=== PATIENT | female | born 2000 | race Caucasian/White ===

== ENCOUNTER 2023-03-19 17:01 | Emergency (ER) | payer OTHER, SELFPAY ==
[2023-03-19 17:12] VITALS: BP 138/87; PULSE 72; RESP 16; TEMP 36.2; O2SAT 99
--- NOTE | 2023-03-19 17:20 | ED.BACK ---
HPI - Back Pain/Injury General Chief Complaint: Back Pain/Injury Stated Complaint: Back pain Time Seen by Provider: 03/19/23 17:20 Source: patient, RN notes reviewed and old records reviewed Mode of arrival: ambulatory Limitations: no limitations History of Present Illness HPI Narrative: 22-year-old female who presents to [facility] with complaints of right lower back pain after lifting a box of chicken this morning at work. Patient states she was lifting box and in process from bending to standing she turned and that is when she felt the discomfort. Patient reports right sided lumbar back pain with no radiation of pain down legs, no tingling or numbness. Patient reports that she did take some Ibuprofen while at work which did seem to help some. Patient denies any difficulty passing urine or any abnormal bowel function denies any saddle paraesthesia. MD elicited complaint: back pain Onset (ago): hour(s) (this morning) Pain scale (0-10): 8 Location: lumbar spine Treatments prior to arrival: NSAIDS Work related injury: Yes Related Data Allergies Allergy/AdvReac Type Severity Reaction Status Date / Time No Known Allergies Allergy Unverified 03/14/17 01:06 Review of Systems Review of Systems: CONSTITUTIONAL: Denies fever, chills, or sweats. CARDIOVASCULAR: Denies chest pain, palpitations, or edema. RESPIRATORY: Denies cough or dyspnea. GASTROINTESTINAL: Denies abdominal pain, nausea, vomiting, or diarrhea. GENITOURINARY: Denies dysuria or hematuria. SKIN: Denies rash or itching. MUSCULOSKELETAL: Reports lumbar back pain especially right side,no joint pain or myalgia. NEUROLOGIC: Denies headache, numbness, or weakness. All systems reviewed & are unremarkable except as noted in HPI and below PMFSH Social History Social History (Updated 03/21/23 @ 23:17 by Ema Madera NP) Smoking status: Never smoker Alcohol intake: current Alcohol use details: social Substance use type: does not use Gender identity (if verbalized by the patient): Female Comments At time of signature, agree with nursing past medical, surgical, social and family history. There is no relevant family history pertinent to the presenting complaint Exam Narrative: GENERAL: Well-appearing, well-nourished, and in no acute distress. HEAD: Normocephalic, atraumatic. EYES: PERRLA and EOMI. NECK: Supple. No lymphadenopathy. CHEST: Clear to auscultation. No respiratory distress. SAO2 99% on room air HEART: Regular rate and rhythm. Distal pulses palpable and equal, cap refill <3 seconds ABDOMEN: Soft, nontender, nondistended, normal active bowel sounds, no palpable or pulsatile masses. No CVA tenderness MUSCULOSKELETAL: Normal range of motion and strength in all extremities; 5/5 strength with hip flexion and extension, dorsiflexion and extension, knee flexion and extension, plantar flexion and extension. Normal sensation in dermatomal distributions with sensitivity to light touch and pain. No midline back tenderness to palpation. No paraspinal tenderness. Transfers from lying to sitting to standing.Pain to right side of lumbar region, no tingling or numbness to legs, no saddle paraesthesia SKIN: Warm, dry, no rash. No ecchymosis, erythema, open wounds to back. NEURO: No focal deficits. Alert and oriented x3. Reflexes intact. Normal gait. PSYCH: Normal mood and affect Course Course Emergency Course: Patient is aware of diagnosis, understands and agrees to treatment plan. Anticipatory guidance given. Patient agrees to follow-up as directed and is aware of reasons to seek care at the emergency department. Portions of this record may have been created with voice recognition software Level of Care: Express Care Visit Vital Signs Vital signs: Vital Signs Temperature 36.2 C L 03/19/23 17:12 Pulse Rate 72 03/19/23 17:12 Respiratory Rate 16 03/19/23 17:12 Blood Pressure 138/87 03/19/23 17:12 Pulse Oximetry 99 12
== END 2023-03-19 17:37 | disposition home or self-care (01) ==
PROVIDERS: Emergency Provider Registered Nurse
DX: S39.012A Strain of muscle, fascia and tendon of lower back, initial encounter (principal); X50.0XXA Overexertion from strenuous movement or load, initial encounter; Y99.0 Civilian activity done for income or pay
CPT/HCPCS: 99213; G0463

== ENCOUNTER 2023-07-01 14:31 | Emergency (ER) | payer OTHER, SELFPAY ==
[2023-07-01 14:43] VITALS: BP 127/100; PULSE 84; RESP 20; TEMP 36.9; O2SAT 100
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
[2023-07-01] MEDS: ONDANSETRON HCL ODT 4 MG TABLET 8 MG SUBLINGUAL (15:04)
== END 2023-07-01 15:34 | disposition home or self-care (01) ==
PROVIDERS: Emergency Provider Nurse Practitioner
DX: F41.9 Anxiety disorder, unspecified (principal)
CPT/HCPCS: 99213; A9270; G0463

== ENCOUNTER 2023-11-07 17:27 | Emergency (ER) | payer OTHER, SELFPAY ==
--- NOTE | ~2023-11-07 | CT_ITS ---
EXAMINATION: CT brain wo con DATE: 11/07/2023 19:03 INDICATION: syncope and collapse . TECHNIQUE: Computed tomography (CT) of the head was performed without intravenous contrast. The mA wa s adjusted according to patient size. Iterative reconstruction technique was employed. The dose-lengt h product was 529.67 mGy-cm. COMPARISON: None. FINDINGS: No acute intracranial hemorrhage or extra-axial fluid collection. No hydrocephalus, mass, or herniation. No acute ischemic infarct. Unremarkable dural venous sinus attenuation. No acute osseous abnormality. The aerated spaces are clear. IMPRESSION: No acute intracranial process. Reviewed, dictated and finalized at location K.
--- NOTE | ~2023-11-07 | XR_ITS ---
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 RESULT: Lines, tubes, and devices: None. Lungs and pleura: Clear. Cardiomediastinal silhouette: Normal. Other: No acute osseous or upper abdominal finding. IMPRESSION: No acute cardiopulmonary process. Reviewed, dictated and finalized at location K.
[2023-11-07 17:34] VITALS: BP 153/80; PULSE 114; RESP 20; TEMP 36.7; O2SAT 100
[2023-11-07 19:31] LABS: Basophils Absolute Auto 0.1 K/mm3 (0.0-0.1); Basophils Percent Auto 0.4 % (0.2-1.2); Eosinophils Absolute Auto 0.1 K/mm3 (0-0.3); Eosinophils Percent Auto 0.4 % (0-4.4); Hematocrit 43.4 % (37.0-47.0); Hemoglobin 14.7 g/dL (12.0-15.0); Immature Granulocyte Absolute 0.09 K/mm3 (0.00-0.031); Immature Granulocyte Percent A 0.6 % (0-0.5); Lymphocytes Absolute Auto 1.71 K/mm3 (0.9-3.2); Lymphocytes Percent Auto 10.5 % (18.3-44.2); Mean Corpuscular HGB Conc 33.9 g/dl (32-36); Mean Corpuscular Hemoglobin 32.3 pg (26-34); Mean Corpuscular Volume 95.4 fl (80-100); Mean Platelet Volume 11.5 fl (7.4-10.4); Monocytes Absolute Auto 0.9 K/mm3 (0.1-0.6); Monocytes Percent Auto 5.4 % (2.6-8.5); Neutrophils Absolute Auto 13.5 K/mm3 (1.3-6.7); Neutrophils Percent Auto 82.7 % (45.5-73.1); Platelet Count Result 214 k/mm3 (150-375); Red Blood Count 4.55 M/mm3 (4.2-5.4); Red Cell Distribution Width 11.9 % (11.5-14.5); White Blood Count 16.3 K/mm3 (4.5-10.0)
[2023-11-07 19:40] LABS: INR 0.9; Prothrombin Time 12.8 Seconds (11.1-14.7)
[2023-11-07 19:41] LABS: Ethanol < 10 mg/dL (<10); Partial Thromboplastin Time 24.3 Seconds (22.3-36.8)
[2023-11-07 19:42] LABS: Alanine Aminotransferase 14 U/L (6-35); Albumin Level 5.4 g/dL (3.5-5.1); Alkaline Phosphatase 84 U/L (38-126); Anion Gap 11 mmol/L (4-12); Aspartate Amino Transferase 23 U/L (14-36); Bilirubin,Total 0.5 mg/dL (0.2-1.3); Blood Urea Nitrogen 15 mg/dL (7-17); Calcium 9.6 mg/dL (8.4-10.2); Carbon Dioxide 28 mmol/L (22-30); Chloride 100 mmol/L (98-107); Estimated CRCL calculation 91 ml/min; Estimated Glomerular Filt Rate > 60; Glucose 109 mg/dL (65-110); Potassium 3.8 mmol/L (3.4-5.0); Sodium 139 mmol/L (137-145)
[2023-11-07 19:54] LABS: Troponin I < 0.012 ng/mL (0.000-0.034)
[2023-11-07 20:15] VITALS: O2SAT 98
--- NOTE | 2023-11-07 20:50 | ED.GENADULT ---
HPI - General Adult General Chief complaint: Seizure Stated complaint: seizure? Time Seen by Provider: 11/07/23 20:38 History of Present Illness HPI narrative: Is a 23-year-old female with history of anxiety presenting for a possible seizure. The patient was at work when she started to think about the many things that are overwhelming her right now. She then felt like her left foot locked up and she tripped and fell to the ground. Her boss thought that she was shaking and having a seizure although the patient was conscious. She has no history of seizures. No tongue biting or urinary incontinence. Patient has no complaints at this time. Related Data Allergies Allergy/AdvReac Type Severity Reaction Status Date / Time No Known Allergies Allergy Unverified 07/01/23 14:42 [facility] Social History Social History Smoking status: Never smoker Alcohol intake: current Alcohol use details: social Substance use type: does not use Gender identity (if verbalized by the patient): Female Exam Narrative: APPEARANCE: No apparent distress. Head: atraumatic. EYES: EOMI, NOSE: Atraumatic NECK: Trachea midline RESPIRATORY: No increased rate of breathing CARDIOVASCULAR: RRR, ABDOMINAL: Non-distended MUSCULOSKELETAl: No obvious deformities NEURO: Alert. Cranial nerves 2-12 grossly intact. Sensation light touch, motor function cerebellar function intact for 4 extremities. Gait exam was normal. SKIN:: Abrasion right knee PSYCHIATRIC: Normal affect Course Vital Signs Vital signs: Vital Signs Temperature 98.1 F 11/07/23 17:34 Pulse Rate 114 H 11/07/23 17:34 Respiratory Rate 20 11/07/23 17:34 Blood Pressure 153/80 H 11/07/23 17:34 Pulse Oximetry 100 11/07/23 17:34 Oxygen Delivery Room Air 11/07/23 17:34 Temperature 98.1 F 11/07/23 17:34 Pulse Rate 114 H 11/07/23 17:34 Respiratory Rate 20 11/07/23 17:34 Blood Pressure 153/80 H 11/07/23 17:34 Pulse Oximetry 100 11/07/23 17:34 Oxygen Delivery Room Air 11/07/23 17:34 Medical Decision Making [facility] Narrative Medical decision making narrative: -Course: 23-year-old female presenting after becoming very anxious and tripping at work. No true seizure activity. No concerning findings on history or physical. Her workup here was unremarkable outside a mildly elevated white count with no other signs of infection. Patient will be discharged to follow-up with her primary care physician. -DDX includes but is not limited to: Stress reaction, psychogenic nonepileptic seizure epilepsy -Co-morbidities complicating care: Anxiety -Social determinants of health: Works multiple jobs, positive marijuana -Hx from independent Sources: Family at bedside -Independent interpretation of studies: WBC 16 Other labs reviewed. -Shared decision making / Disposition: Discharge -RX Vital Signs Vital Signs: Vital Signs Temperature 98.1 F 11/07/23 17:34 Pulse Rate 114 H 11/07/23 17:34 Respiratory Rate 20 11/07/23 17:34 Blood Pressure 153/80 H 11/07/23 17:34 Pulse Oximetry 100 11/07/23 17:34 Oxygen Delivery Room Air 11/07/23 17:34 Temperature 98.1 F 11/07/23 17:34 Pulse Rate 114 H 11/07/23 17:34 Respiratory Rate 20 11/07/23 17:34 Blood Pressure 153/80 H 11/07/23 17:34 Pulse Oximetry 100 11/07/23 17:34 Oxygen Delivery Room Air 11/07/23 17:34 Lab Data 11/07/23 19:19 11/07/23 19:19 Labs: Lab Results 11/07/23 11/07/23 Range/Units 19:19 20:30 WBC 16.3 H (4.5-10.0) K/mm3 RBC 4.55 (4.2-5.4) M/mm3 Hgb 14.7 (12.0-15.0) g/dL Hct 43.4 (37.0-47.0) % MCV 95.4 (80-100) fl MCH 32.3 (26-34) pg MCHC 33.9 (32-36) g/dl RDW 11.9 (11.5-14.5) % Plt Count 214 (150-375) k/mm3 MPV 11.5 H (7.4-10.4) fl Immature Gran % (Auto) 0.6 H (0-0.5) % Neut % (Auto) 82.7 H (45.5-73.1) % Lym
[2023-11-07 20:54] LABS: Appearance Urine Clear (Clear); Bilirubin Urine Negative (Negative); Blood Urine Negative (Negative); Color Urine Yellow (Yellow); Glucose Urine UA Negative (Negative); Ketones Urine Negative (Negative); Leukocyte Esterase Ur Negative LEU/UL (Negative); Nitrate Urine Negative (Negative); Protein Urine Negative (Negative); Specific Grav Ur 1.006 (1.001-1.035); Urobilinogen Urine 0.2 mg/dL (<2.0); pH Urine 5.5 (5.0-9.0)
[2023-11-07 20:55] LABS: Amphetamine Screen Urine Negative (Negative); Barbiturate Screen Urine Negative (Negative); Benzodiazepines Screen Urine Negative (Negative); Cannabinoid Screen Urine Positive (Negative); Cocaine Screen Urine Negative (Negative); Methadone Screen Urine Negative (Negative); Opiate Screen Urine Negative (Negative); Phencyclidine Screen Urine Negative (Negative)
[2023-11-07 20:58] LABS: Add Urine Microscopic? NO
[2023-11-07 21:18] VITALS: BP 127/87; PULSE 93; RESP 16; TEMP 36.3; O2SAT 99
== END 2023-11-07 21:20 | disposition home or self-care (01) ==
LOC: ANHED 21:13
PROVIDERS: Emergency Provider Emergency Medicine
DX: F43.9 Reaction to severe stress, unspecified (principal); F41.9 Anxiety disorder, unspecified
CPT/HCPCS: 36415; 70450; 71046; 80053; 80307; 81003; 81025; 84484; 85025; 85610; 85730; 99284

== ENCOUNTER 2023-12-29 10:13 | Emergency (ER) | payer OTHER, SELFPAY ==
[2023-12-29 10:18] VITALS: BP 110/62; PULSE 72; RESP 20; TEMP 37.1; O2SAT 100
--- NOTE | 2023-12-29 10:33 | ED.URI ---
HPI - URI/Sore Throat General Chief Complaint: Upper Respiratory Infection Stated Complaint: throat Time Seen by Provider: 12/29/23 10:34 History of Present Illness HPI Narrative: 23-year-old female presented for complaint of sore throat. Onset today. Endorses felt scratchy this morning and a mild headache last night. Endorses exposure to strep throat. Denies n/v/d/f/c. Related Data Allergies Allergy/AdvReac Type Severity Reaction Status Date / Time No Known Allergies Allergy Unverified 07/01/23 14:42 Review of Systems Review of Systems: CONSTITUTIONAL: Denies body aches, fever, chills, or sweats. EYES: Denies visual changes, redness, or discharge. ENT: Reports sore throat Denies rhinorrhea, congestion, or otalgia. CARDIOVASCULAR: Denies chest pain, palpitations, or edema. RESPIRATORY: Denies dyspnea. GASTROINTESTINAL: Denies abdominal pain, nausea, vomiting, or diarrhea. SKIN: Denies rash MUSCULOSKELETAL: Denies back pain, joint pain, or myalgia. NEUROLOGIC: Denies headache [facility] Social History Social History Smoking status: Never smoker Alcohol intake: current Alcohol use details: social Substance use type: does not use Gender identity (if verbalized by the patient): Female Exam Narrative: GENERAL: ill-appearing, no acute distress. EYES: conjunctivae clear ENT: Mucous membranes moist. TM pearly huertas with normal light reflex bilaterally; no tragal tenderness. Oropharynx mildly erythematous without lesions. Tonsils enlarged 1+ and without exudate. No drooling, no hoarseness, no trismus, uvula midline. No tripod positioning, hot potato voice, or soft palate swelling. NECK: Supple. No lymphadenopathy CHEST: Clear to auscultation, breath sounds equal. No respiratory distress, speaks in full sentences. HEART: Regular rate and rhythm. No murmur heard. SKIN: Warm, dry, no rash. NEURO: Alert and oriented x3. Course Course Emergency Course: Patient is aware of diagnosis, understands and agrees to treatment plan. Anticipatory guidance given. Patient agrees to follow-up as directed and is aware of reasons to seek care at the emergency department. Portions of this record may have been created with voice recognition software Level of Care: Express Care Visit Vital Signs Vital signs: Vital Signs Temperature 98.7 F 12/29/23 10:18 Pulse Rate 72 12/29/23 10:18 Respiratory Rate 20 12/29/23 10:18 Blood Pressure 110/62 12/29/23 10:18 Pulse Oximetry 100 12/29/23 10:18 Oxygen Delivery Room Air 12/29/23 10:18 Temperature 98.7 F 12/29/23 10:18 Pulse Rate 72 12/29/23 10:18 Respiratory Rate 20 12/29/23 10:18 Blood Pressure 110/62 12/29/23 10:18 Pulse Oximetry 100 12/29/23 10:18 Oxygen Delivery Room Air 12/29/23 10:18 MDM - URI/Sore Throat MDM Narrative Medical decision making narrative: Neg strep result reviewed with pt. Advise supportive treatments. Patient is appropriate for outpatient treatment and follow-up. Differential Diagnosis Differential diagnosis: Likely upper respiratory infection, viral infection and pharyngitis Discharge Plan Discharge Clinical Impression: Pharyngitis Patient Disposition: Home, Self-Care Condition: Stable Instructions: Antibiotic Form, Strep Throat (ED) Additional Instructions: Rapid strep swab was negative today You will be notified in a few days if the culture comes back positive for strep, and appropriate antibiotics will be called in at that time. if symptoms are due to a viral illness, it is not treated with antibiotics. Viral symptoms can be present for up to 10-14 days. Recommend Flonase spray and Zyrtec if you develop sinus congestion Cough syrup may cause drowsiness; avoid driving or take it at night time. Tylenol every 8 hours as needed for pain/fever Soft foods, cool liquids, warm tea. Gargle with warm saltwater twice a day.
[2023-12-29 10:42] LABS: EDSTREPNEGPOS1 Negative (Negative)
== END 2023-12-29 10:41 | disposition home or self-care (01) ==
PROVIDERS: Emergency Provider Nurse Practitioner Family
DX: J02.9 Acute pharyngitis, unspecified (principal)
CPT/HCPCS: 87081; 87880; 99213; G0463

== ENCOUNTER 2024-07-08 18:25 | Emergency (ER) | payer BC, SELFPAY ==
--- OUTSIDE RECORDS SUMMARY | 2024-07-08 18:27 | XMS_ITS | Clinical Summary ---
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 Gender Identity Not on file Sexual Orientation Not on file Plan of Treatment Health Maintenance Due Date Last Done Comments Hepatitis C Virus (HCV) Screening 1998 TdaP Immunization 1998 Human Papillomavirus (HPV) Immunization (1 - 3-dose series) 2013 Pap Smear 2019 Influenza Immunization (#1) 12/18/202310/2018, 02/17/2017, 02/10/2016, Additional history exists SARS-COV-2 Immunization ( season) 2023 Respiratory Syncytial Virus (RSV) Immunization (Adult) (1 - 1-dose 75+ series) 2073 Hepatitis B Immunization Completed 999, 1998, 1998 Pneumococcal Immunization Combined Aged Out 03/04/2000, 01/05/2000 No longer eligibl e based on patient's age to complete this topic DTaP/Tdap/Td Immunization Discontinued 2003, 01/05/2000, 1998, Additional history exists Meningococcal Immunization (ACWY) Aged Out No longer eligible based on patient's age to complete this topic Rotavirus Immunization Aged Out No lo nger eligible based on patient's age to complete this topic
[2024-07-08 18:40] VITALS: BP 135/65; PULSE 115; RESP 16; TEMP 37.6; O2SAT 99
[2024-07-08 18:48] LABS: EDUAAPPEAR Cloudy; EDUABILI Negative (Negative); EDUABLOOD 1+ (Negative); EDUACOLOR1 Yellow; EDUAGLUCOSE Negative (Negative); EDUAKETONE Negative (Negative); EDUALEUKO 1+ (Negative); EDUANITRATE Negative (Negative); EDUAPROTEIN 1+ (Negative); EDUASPGRAVITY 1.015; EDUAUROBILI 0.2
--- NOTE | 2024-07-08 19:45 | ED.GENADULT ---
HPI - General Adult General Chief complaint: Urogenital-Female Stated complaint: headache/poss UTI Source: patient Mode of arrival: ambulatory Limitations: no limitations History of Present Illness HPI narrative: Patient presents for evaluation of flank pain, hot flashes and headache. Symptom onset last night. She initially had bilateral flank pain but states she currently only has symptoms on the right. Pain is constant, aching, with intermittent periods of sharp pain. Pain fluctuates between ratings of 4/10 and 6/10. She took her temperature thinking that she had a fever but her temperature was normal. She is currently , approximately 22 weeks gestation. . She denies any vomiting, diarrhea, abdominal pain, urinary symptoms, vaginal bleeding or discharge. Her OBGYN is Dr Merritt. Related Data Allergies Allergy/AdvReac Type Severity Reaction Status Date / Time No Known Allergies Allergy Verified 07/03/24 10:29 Review of Systems Review of Systems: CONSTITUTIONAL: Reports hot flashes. Denies fever, chills, or sweats. EYES: Denies visual changes, redness, or discharge. ENT: Denies rhinorrhea, congestion, sore throat, or otalgia. CARDIOVASCULAR: Denies chest pain, palpitations, or edema. RESPIRATORY: Denies cough or dyspnea. GASTROINTESTINAL: Denies abdominal pain, nausea, vomiting, or diarrhea. GENITOURINARY: Reports right flank pain. Denies dysuria or hematuria. SKIN: Denies rash or itching. MUSCULOSKELETAL: Denies joint pain, or myalgia. NEUROLOGIC: Reports headache. Denies numbness, dizziness, or weakness. PSYCHIATRIC: Denies anxiety or depression. [facility] Past Medical History Medical History Suppression of menses Surgical History Surgical History No pertinent past surgical history Family History Family History Mother Diabetes mellitus Grandparent Heart disease Social History Social History Smoking status: Never smoker Alcohol intake: current Alcohol use details: social Substance use type: does not use Do You Feel Safe in your Home?: Yes Lack of Transportation: No Lack of Food: Never True Current Housing: I Have Housing Concerned About Future Housing: No Difficulty Paying Gas/Electric Bills: No Difficulty Paying for Meds: No Education: Associate Degree Difficulty w/ Childcare or Family Care: No Living arrangements: with family Occupation/Education: occupation Gender identity (if verbalized by the patient): Female Sexual Orientation (if Verbalized by the Patient): Straight or Heterosexual Exam Narrative: GENERAL: Well-appearing, well-nourished, and in no acute distress. HEAD: Normocephalic, atraumatic. EYES: PERRLA and EOMI. ENT: Nares clear, no rhinorrhea or epistaxis. Mucous membranes moist. Oropharynx without tonsillar hypertrophy exudate or other lesions. Bilateral TMs pearly huertas nonbulging NECK: Supple. No adenopathy or masses. No carotid bruits or JVD CHEST: Clear to auscultation. No respiratory distress. No wheezes rales or rhonchi HEART: Rate 120. Regular rhythm. No murmur heard. Normal peripheral pulses. ABDOMEN: Soft, nontender, nondistended, normal active bowel sounds. BACK: Mild right sided CVA tenderness EXTREMITIES: Normal range of motion. No edema. SKIN: Warm, dry, no rash. NEURO: No focal deficits. Alert and oriented x3. PSYCH: Normal mood and affect. Course Course Emergency Course: This is a 24-year-old female who presented for evaluation of hot flashes, right flank pain and headache. Her heart rate in triage was 115, on my evaluation was in the 120s. I ambulated patient in the hallway in her heart rate accelerated to 145 bpm, although she appeared to be in no distress and denied chest pain and SOB. She has 1+ blood and 1+ leukocytes in her urine. One consideration would be for obstructing stone, and potential sepsis. I recommended the patient be transferred to the hospital for further evaluation. [facility] as her facility of choice. I contacted the ER at [facility] and spoke with physician broker assistant, Bre Humphrey, and she indicated that Dr. Cook will accept patient for transfer there. Patient was taken via private vehicle Level of Care: Express Care Visit Vital Signs Vital signs: Vital Signs Temperature 37.6 C 07/08/24 18:40 Pulse Rate 115 H 07/08/24 18:40 Respiratory Rate 16 07/08/24 18:40 Blood Pressure 135/65 07/08/24 18:40 Pulse Oximetry 99 07/08/24 18:40 Oxygen Delivery Room Air 07/08/24 18:40 Temperature 37.6 C 07/08/24 18:40 Pulse Rate 115 H 07/08/24 18:40 Respiratory Rate 16 07/08/24 18:40 Blood Pressure 135/65 07/08/24 18:40 Pulse Oximetry 99 07/08/24 18:40 Oxygen Delivery Room Air 07/08/24 18:40 Medical Decision Making Vital Signs Vital Signs: Vital Signs Temperature 37.6 C 07/08/24 18:40 Pulse Rate 115 H 07/08/24 18:40 Respiratory Rate 16 07/08/24 18:40 Blood Pressure 135/65 07/08/24 18:40 Pulse Oximetry 99 07/08/24 18:40 Oxygen Delivery Room Air 07/08/24 18:40 Temperature 37.6 C 07/08/24 18:40 Pulse Rate 115 H 07/08/24 18:40 Respiratory Rate 16 07/08/24 18:40 Blood Pressure 135/65 07/08/24 18:40 Pulse Oximetry 99 07/08/24 18:40 Oxygen Delivery Room Air 07/08/24 18:40 Lab Data Labs: Lab Results 07/08/24 Range/Units 18:40 POC Urine Color Yellow POC Urine Clarity Cloudy POC Urine pH 7.0 POC Ur Specif [place] 1.015 POC Urine Protein 1+ (Negative) POC Ur Glucose (UA) Negative (Negative) POC Urine Ketones Negative (Negative) POC Urine Blood 1+ (Negative) POC Urine Nitrite Negative (Negative) POC Urine Bilirubin Negative (Negative) POC Urine Urobilinogen 0.2 POC U Leukocyte Esteras 1+ (Negative) Discharge Plan Discharge Clinical Impression: Urinary tract infection, Tachycardia Patient Disposition: Acute Care Hospital Condition: Stable Patient Language: Bruneian Prescriptions: No Action Classic 28 mg iron- 800 mcg tablet 1 tablet PO .qd 30 Days Qty: 30 6RF Follow-up/Referrals: PHYSICIAN,TRANSMISSION SUPERINTENDENT [Primary Care Provider] - Time of Disposition: 20:05
== END 2024-07-08 20:10 | disposition short-term general hospital (02) ==
PROVIDERS: Emergency Provider Nurse Practitioner
DX: O23.42 Unspecified infection of urinary tract in pregnancy, second trimester (principal); B95.7 Other staphylococcus as the cause of diseases classified elsewhere; N39.0 Urinary tract infection, site not specified; Z3A.26 26 weeks gestation of pregnancy; O99.891 Other specified diseases and conditions complicating pregnancy; R00.0 Tachycardia, unspecified
CPT/HCPCS: 81003; 87086; 99213; G0463

== ENCOUNTER 2024-07-08 20:47 | Inpatient (IN) | payer BC, SELFPAY ==
--- OUTSIDE RECORDS SUMMARY | 2024-07-08 20:48 | XMS_ITS | Clinical Summary ---
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
[2024-07-08 21:29] VITALS: BP 131/77; PULSE 112; RESP 15; TEMP 38.1; O2SAT 100
[2024-07-08 22:07] LABS: Basophils Percent Auto 0.2 % (0.2-1.2); Hematocrit 32.5 % (37.0-47.0); Hemoglobin 11.1 g/dL (12.0-15.0); Immature Granulocyte Absolute 0.12 K/mm3 (0.00-0.031); Immature Granulocyte Percent A 0.6 % (0-0.5); Lymphocytes Absolute Auto 1.07 K/mm3 (0.9-3.2); Lymphocytes Percent Auto 5.4 % (18.3-44.2); Mean Corpuscular HGB Conc 34.2 g/dl (32-36); Mean Corpuscular Hemoglobin 32.1 pg (26-34); Mean Corpuscular Volume 93.9 fl (80-100); Mean Platelet Volume 10.4 fl (7.4-10.4); Monocytes Absolute Auto 1.5 K/mm3 (0.1-0.6); Monocytes Percent Auto 7.6 % (2.6-8.5); Neutrophils Absolute Auto 16.9 K/mm3 (1.3-6.7); Neutrophils Percent Auto 86.2 % (45.5-73.1); Platelet Count Result 222 k/mm3 (150-375); Red Blood Count 3.46 M/mm3 (4.2-5.4); Red Cell Distribution Width 12.8 % (11.5-14.5); White Blood Count 19.6 K/mm3 (4.5-10.0)
[2024-07-08 22:13] LABS: BEDSIDEPREGUCG Negative (Negative)
[2024-07-08 22:18] LABS: Alanine Aminotransferase 20 U/L (6-35); Albumin Level 4.1 g/dL (3.5-5.1); Alkaline Phosphatase 80 U/L (38-126); Anion Gap 10 mmol/L (4-12); Aspartate Amino Transferase 23 U/L (14-36); Bilirubin,Total 0.7 mg/dL (0.2-1.3); Blood Urea Nitrogen 6 mg/dL (7-17); Calcium 9.3 mg/dL (8.4-10.2); Carbon Dioxide 22 mmol/L (22-30); Chloride 97 mmol/L (98-107); Estimated CRCL calculation 130 ml/min; Estimated Glomerular Filt Rate > 60; Glucose 166 mg/dL (65-110); Potassium 3.4 mmol/L (3.4-5.0); Sodium 129 mmol/L (137-145)
[2024-07-08 22:19] LABS: Add Urine Microscopic? YES; Appearance Urine Clear (Clear); Bacteria Urine None Seen /hpf; Bilirubin Urine Negative (Negative); Blood Urine 1+ (Negative); Color Urine Yellow (Yellow); Glucose Urine UA Negative (Negative); Ketones Urine 1+ mg/dL (Negative); Leukocyte Esterase Ur 1+ LEU/UL (Negative); Nitrate Urine Negative (Negative); Non Pathogenic Casts 0-2; Protein Urine Trace mg/dL (Negative); RBC Urine 0-2 /hpf (0-2); Specific Grav Ur 1.005 (1.001-1.035); Squamous Epithelial Cell Urine None Seen /hpf (Few); Urobilinogen Urine 0.2 mg/dL (<2.0)
[2024-07-08 23:58] VITALS: BP 123/68; PULSE 112; RESP 16; O2SAT 100
[2024-07-09] VITALS (14 sets, daily range): BP systolic 93–134; BP diastolic 58–93; PULSE 80–111; RESP 16–19; TEMP 36.2–37.3; O2SAT 88–100; BMI 27.4
--- NOTE | 2024-07-09 00:45 | PC.NURSE ---
pt has a positive bedside test. pt aware she is 22 weeks at this time.
--- NOTE | 2024-07-09 01:32 | ED_ITS ---
HPI - Abdominal Pain General Chief Complaint: Abdominal Pain Stated Complaint: right flank pain Time Seen by Provider: 07/09/24 01:30 Source: patient Mode of arrival: ambulatory Limitations: no limitations History of Present Illness HPI narrative: Patient is a 24 year old female approximately 22 weeks who presents with right flank pain. SHe was initially told at urgent care where she presented to go to the ED. No abdominal pain. Normal movement. No nausea/vomiting/cough/diarrhea. Having hot flashes and a headache. Last night and this morning temperature was 98. No complications during this . No dizziness. No hematuria or dysuria but experiencing urinary frequency last night. No history of UTI or stone. No vaginal bleeding or disharge. OSBALDO November 11. ObGyn Dr Shannon Merritt. Related Data Home Medications ?Medication ?Instructions ?Recorded ?Confirmed ?Last Taken ?Type acetaminophen 325 mg capsule 325 mg PO Q4-6H PRN fever or pain 07/09/24 07/09/24 Unknown History Allergies Allergy/AdvReac Type Severity Reaction Status Date / Time No Known Allergies Allergy Verified 07/08/24 21:34 REPLACED BY [facility] Past Medical History Medical History Suppression of menses Surgical History Surgical History No pertinent past surgical history Family History Family History Mother Diabetes mellitus Grandparent Heart disease Social History Social History Smoking status: Never smoker Alcohol intake: never Alcohol use details: social Substance use: never Substance use type: does not use Do You Feel Safe in your Home?: Yes Lack of Transportation: No Lack of Food: Never True Current Housing: I Have Housing Concerned About Future Housing: No Difficulty Paying Gas/Electric Bills: No Difficulty Paying for Meds: No Currently Unemployed: No Education: Associate Degree Difficulty w/ Childcare or Family Care: No Living arrangements: with family Occupation/Education: occupation Gender identity (if verbalized by the patient): Female Sexual Orientation (if Verbalized by the Patient): Straight or Heterosexual Spiritual care concerns: No Exam 2 Narrative: GENERAL: Well-appearing, well-nourished, and in no acute distress. HEAD: Normocephalic, atraumatic. EYES: Non injected, non icteric ENT: Nares clear, no rhinorrhea or epistaxis. NECK: Supple. CHEST: Speaking in full sentences. No respiratory distress. HEART: Tachycardic rate and rhythm. . ABDOMEN: Soft, nondistended. Non tender to palpation. : R CVA tenderness. No CVA tenderness on the left. EXTREMITIES: Normal range of motion. No lower extremity edema. SKIN: Warm, dry, no rash. NEURO: No focal deficits. Alert and oriented x3. PSYCH: Normal mood and affect. Course Vital Signs Vital signs: Vital Signs Temperature 100.6 F H 07/08/24 21:29 Pulse Rate 112 H 07/08/24 21:29 Respiratory Rate 15 07/08/24 21:29 Blood Pressure 131/77 07/08/24 21:29 Pulse Oximetry 100 07/08/24 21:29 Oxygen Delivery Room Air 07/08/24 21:29 Temperature 98.1 F 07/10/24 08:11 Pulse Rate 88 07/10/24 08:05 Respiratory Rate 18 07/10/24 02:09 Blood Pressure 121/75 07/10/24 08:05 Pulse Oximetry 100 07/10/24 02:09 Oxygen Delivery Room Air 07/09/24 18:07 MDM - Abdominal Pain MDM Narrative Medical decision making narrative: 24 yo female at 22w1d gestational age by stated OSBALDO 11/11/24 presents with R flank pain. In the emergency department she is afebrile with a temperature of 100.6? F and tachycardic at 112. On reassessment heart rate and temperature have improved. She has a leukocytosis and normocytic anemia. Sodium corrects to 130/131 in the setting of hyperglycemia which is otherwise without anion gap acidosis. No bacteria present on urinalysis but it was leukocyte esterase and pyuria; 1+ blood. Given she otherwise seems symptomatic with pyelonephritis given flank pain, fever, CVA tenderness, reasonable to treat. Did consider kidney stone or infected kidney stone. Because it did not automatically reflex to culture 1 was ordered and lab called to process. Discussed with Dr Pretty, covering for Marisol Merritt who does concur with management thus far and admission. Recommends starting Ancef. Will evaluate in the morning and if does not appear responding to antibiotics, consider alternative etiologies inlcluding renal/ureteral calcluli. Differential Diagnosis Differential diagnosis: Likely abdominal pain, constipation and other (pyelonephritis ; kidney stone including infected stone) Lab Data Attestation: I reviewed the patient's lab results. 07/10/24 05:07 07/10/24 05:07 Labs: Lab Results 07/08/24 07/08/24 07/08/24 Range/Units 22:01 22:06 22:09 WBC 19.6 H (4.5-10.0) K/mm3 RBC 3.46 L (4.2-5.4) M/mm3 Hgb 11.1 L D (12.0-15.0) g/dL Hct 32.5 L (37.0-47.0) % MCV 93.9 (80-100) fl MCH 32.1 (26-34) pg MCHC 34.2 (32-36) g/dl RDW 12.8 (11.5-14.5) % Plt Count 222 (150-375) k/mm3 MPV 10.4 (7.4-10.4) fl Immature Gran % (Auto) 0.6 H (0-0.5) % Neut % (Auto) 86.2 H (45.5-73.1) % Lymph % (Auto) 5.4 L (18.3-44.2) % [place] % (Auto) 7.6 (2.6-8.5) % Eos % (Auto) 0.0 (0-4.4) % Baso % (Auto) 0.2 (0.2-1.2) % Lymph # (Auto) 1.07 (0.9-3.2) K/mm3 [place] # (Auto) 1.5 H (0.1-0.6) K/mm3 Eos # (Auto) 0.0 (0-0.3) K/mm3 Baso # (Auto) 0.0 (0.0-0.1) K/mm3 Abs Immat Gran (auto) 0.12 H (0.00-0.031) K/mm3 Absolute Neuts (auto) 16.9 H (1.3-6.7) K/mm3 Absolute Nucleated RBC 0.000 (0.0-0.012) K/mm3 Nucleated RBC % 0.0 (0.0-0.2) % Sodium 129 L (137-145) mmol/L Potassium 3.4 (3.4-5.0) mmol/L Chloride 97 L (98-107) mmol/L Carbon Dioxide 22 (22-30) mmol/L Anion Gap 10 (4-12) mmol/L BUN 6 L D (7-17) mg/dL Creatinine 0.49 L (0.7-1.0) mg/dL Estim Creat Clear Calc 130 ml/min Estimated GFR > 60 (59 - ) Glucose 166 H (65-110) mg/dL Calcium 9.3 (8.4-10.2) mg/dL Total Bilirubin 0.7 (0.2-1.3) mg/dL AST 23 (14-36) U/L ALT 20 (6-35) U/L Alkaline Phosphatase 80 (38-126) U/L Total Protein 8.0 (6.3-8.2) g/dL Albumin 4.1 (3.5-5.1) g/dL Urine Color Yellow (Yellow) Urine Appearance Clear (Clear) Urine pH 6.0 (5.0-9.0) Ur Specific [place] 1.005 (1.001-1.035) Urine Protein Trace (Negative) mg/dL Urine Glucose (UA) Negative (Negative) mg/dL Urine Ketones 1+ H (Negative) mg/dL Ur Blood (Man) 1+ H (Negative) Urine Nitrate Negative (Negative) Urine Bilirubin Negative (Negative) Urine Urobilinogen 0.2 (<2.0) mg/dL Leukocyte Esterase Rfl 1+ H (Negative) KAMERON/UL Urine RBC 0-2 (0-2) /hpf Urine WBC 6-10 H (0-3) /hpf Ur Squamous Epith Cells None seen (Few) /hpf Urine Bacteria None seen /hpf Urine Casts 0-2 POC Urine HCG, Qual Negative (Negative) 07/09/24 Range/Units 00:45 WBC (4.5-10.0) K/mm3 RBC (4.2-5.4) M/mm3 Hgb (12.0-15.0) g/dL Hct (37.0-47.0) % MCV (80-100) fl MCH (26-34) pg MCHC (32-36) g/dl RDW (11.5-14.5) % Plt Count (150-375) k/mm3 MPV (7.4-10.4) fl Immature Gran % (Auto) (0-0.5) % Neut % (Auto) (45.5-73.1) % Lymph % (Auto) (18.3-44.2) % [place] % (Auto) (2.6-8.5) % Eos % (Auto) (0-4.4) % Baso % (Auto) (0.2-1.2) % Lymph # (Auto) (0.9-3.2) K/mm3 [place] # (Auto) (0.1-0.6) K/mm3 Eos # (Auto) (0-0.3) K/mm3 Baso # (Auto) (0.0-0.1) K/mm3 Abs Immat Gran (auto) (0.00-0.031) K/mm3 Absolute Neuts (auto) (1.3-6.7) K/mm3 Absolute Nucleated RBC (0.0-0.012) K/mm3 Nucleated RBC % (0.0-0.2) % Sodium (137-145) mmol/L Potassium (3.4-5.0) mmol/L Chloride (98-107) mmol/L Carbon Dioxide (22-30) mmol/L Anion Gap (4-12) mmol/L BUN (7-17) mg/dL Creatinine (0.7-1.0) mg/dL Estim Creat Clear Calc ml/min Estimated GFR (59 - ) Glucose (65-110) mg/dL Calcium (8.4-10.2) mg/dL Total Bilirubin (0.2-1.3) mg/dL AST (14-36) U/L ALT (6-35) U/L Alkaline Phosphatase (38-126) U/L Total Protein (6.3-8.2) g/dL Albumin (3.5-5.1) g/dL Urine Color (Yellow) Urine Appearance (Clear) Urine pH (5.0-9.0) Ur Specific [place] (1.001-1.035) Urine Protein (Negative) mg/dL Urine Glucose (UA) (Negative) mg/dL Urine Ketones (Negative) mg/dL Ur Blood (Man) (Negative) Urine Nitrate (Negative) Urine Bilirubin (Negative) Urine Urobilinogen (<2.0) mg/dL Leukocyte Esterase Rfl (Negative) KAMERON/UL Urine RBC (0-2) /hpf Urine WBC (0-3) /hpf Ur Squamous Epith Cells (Few) /hpf Urine Bacteria /hpf Urine Casts POC Urine HCG, Qual Positive (Negative) Discharge Plan Discharge Clinical Impression: Pyelonephritis during , Leukocytosis, Anemia in , Hyperglycemia, Hyponatremia Patient Disposition: Still a Patient Condition: Stable
[2024-07-09 01:44] LABS: BEDSIDEPREGUCG Positive (Negative)
--- OUTSIDE RECORDS SUMMARY | 2024-07-09 01:44 | XMS_ITS | Clinical Summary ---
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
[2024-07-09] MEDS: ACETAMINOPHEN 500 MG TABLET 1000 MG PO (02:08)
[2024-07-09] MEDS: SODIUM CHLORIDE 0.9% IV 1,000 ML 999 ML IV CONT (02:09)
--- NOTE | 2024-07-09 02:11 | PC.NURSE ---
patient sees Dr. Merritt as her OBGYN
[2024-07-09] MEDS: ceFAZolin 1 GM/NS 50 ML 1 GM/50 ML BAG IVPB (02:36)
--- NOTE | 2024-07-09 03:20 | ADMGEN ---
This patient, Ebenezer Espinal, was admitted to 3 [facility] Surg Room 309-01. Patient/family oriented to hospital policies and general routines including ID bracelet, bed and alarms, visiting hours, pain management, procedures, bathroom and other care routines, personal items, smoking policy, room service/diet, and visiting hours. Information on how to activate the Rapid Response Team has been discussed. Patient/Family are encouraged to report perceived risks to care and to ask questions if they do not understand what they are told or what they should do.
[2024-07-09] MEDS: SODIUM CHLORIDE 0.9% IV 1,000 ML 125 ML IV CONT ×3 (03:45→18:54)
--- NOTE | 2024-07-09 05:43 | P.HP_ITS ---
H&P: HPI History of Present Illness Date/Time: 07/09/24 05:43 Chief Complaint: Flank pain Narrative: Patient evaluated at urgent care then ER due to flank pain worse on right. She was diagnosed with pyelonephritis. IV antibiotics started. [facility] Past Medical History Medical History Suppression of menses Surgical History Surgical History No pertinent past surgical history Family History Family History Mother Diabetes mellitus Grandparent Heart disease Social History Social History Smoking status: Never smoker Alcohol intake: never Alcohol use details: social Substance use: never Substance use type: does not use Do You Feel Safe in your Home?: Yes Lack of Transportation: No Lack of Food: Never True Current Housing: I Have Housing Concerned About Future Housing: No Difficulty Paying Gas/Electric Bills: No Difficulty Paying for Meds: No Currently Unemployed: No Education: Associate Degree Difficulty w/ Childcare or Family Care: No Living arrangements: with family Occupation/Education: occupation Gender identity (if verbalized by the patient): Female Sexual Orientation (if Verbalized by the Patient): Straight or Heterosexual Spiritual care concerns: No Meds Home Medications and Allergies Home Medications ?Medication ?Instructions ?Recorded ?Confirmed ?Type vits no.126-ferrous fum 1 tablet PO .qd 30 days #30 tabs 05/07/24 07/09/24 Rx 28 mg iron-folic acid 800 mcg tablet (Classic ) acetaminophen 325 mg capsule 325 mg PO Q4-6H PRN fever or pain 07/09/24 07/09/24 History Allergies Allergy/AdvReac Type Severity Reaction Status Date / Time No Known Allergies Allergy Verified 07/08/24 21:34 Vital Signs Vital Signs - 24 hr 07/08/24 21:29 07/08/24 23:58 07/09/24 00:54 Temperature 100.6 F H 98.7 F Pulse Rate 112 H 112 H 99 Respiratory Rate 15 16 16 Blood Pressure 131/77 123/68 134/93 H Pulse Oximetry 100 100 100 Oxygen Delivery Room Air 07/09/24 01:47 07/09/24 03:12 07/09/24 04:49 Temperature 97.7 F Pulse Rate 103 H 80 80 Respiratory Rate 19 18 18 Blood Pressure 101/82 112/67 Pulse Oximetry 100 99 99 Oxygen Delivery Room Air H&P: Results Labs Labs: Short CBC 07/08/24 Range/Units 22:01 WBC 19.6 H (4.5-10.0) K/mm3 Hgb 11.1 L D (12.0-15.0) g/dL Hct 32.5 L (37.0-47.0) % Plt Count 222 (150-375) k/mm3 BMP 07/08/24 22:01 Sodium 129 L Potassium 3.4 Chloride 97 L Carbon Dioxide 22 BUN 6 L D Creatinine 0.49 L Glucose 166 H Calcium 9.3 Liver Function 07/08/24 Range/Units 22:01 Total Bilirubin 0.7 (0.2-1.3) mg/dL AST 23 (14-36) U/L ALT 20 (6-35) U/L Alkaline Phosphatase 80 (38-126) U/L Albumin 4.1 (3.5-5.1) g/dL Urine 07/08/24 Range/Units 22:06 Urine Color Yellow (Yellow) Urine Appearance Clear (Clear) Urine pH 6.0 (5.0-9.0) Ur Specific [place] 1.005 (1.001-1.035) Urine Protein Trace (Negative) mg/dL Urine Glucose (UA) Negative (Negative) mg/dL Assessment and Plan Assessment and plan (1) Pyelonephritis affecting : Code(s): O23.00 - Infections of kidney in , unspecified trimester Status: Acute Assessment and Plan: 1. Admit 2. IV antibiotics 3. Analgesia. Consider renal ultrasound.
[2024-07-09] MEDS: ACETAMINOPHEN 325 MG TABLET 650 MG PO ×2 (14:12→21:07)
[2024-07-10 02:08] VITALS: PULSE 94; O2SAT 100
[2024-07-10 02:09] VITALS: BP 95/54; PULSE 87; PULSE 94; RESP 18; TEMP 36.8; O2SAT 100
[2024-07-10] MEDS: SODIUM CHLORIDE 0.9% IV 1,000 ML 125 ML IV CONT (03:03)
[2024-07-10 05:19] LABS: Basophils Percent Auto 0.1 % (0.2-1.2); Eosinophils Absolute Auto 0.1 K/mm3 (0-0.3); Eosinophils Percent Auto 0.4 % (0-4.4); Hematocrit 26.4 % (37.0-47.0); Immature Granulocyte Absolute 0.06 K/mm3 (0.00-0.031); Immature Granulocyte Percent A 0.4 % (0-0.5); Lymphocytes Absolute Auto 1.55 K/mm3 (0.9-3.2); Lymphocytes Percent Auto 11.6 % (18.3-44.2); Mean Corpuscular HGB Conc 34.1 g/dl (32-36); Mean Corpuscular Hemoglobin 32.3 pg (26-34); Mean Corpuscular Volume 94.6 fl (80-100); Mean Platelet Volume 10.4 fl (7.4-10.4); Monocytes Absolute Auto 1.5 K/mm3 (0.1-0.6); Monocytes Percent Auto 11.1 % (2.6-8.5); Neutrophils Absolute Auto 10.2 K/mm3 (1.3-6.7); Neutrophils Percent Auto 76.4 % (45.5-73.1); Platelet Count Result 160 k/mm3 (150-375); Red Blood Count 2.79 M/mm3 (4.2-5.4); Red Cell Distribution Width 12.8 % (11.5-14.5); White Blood Count 13.4 K/mm3 (4.5-10.0)
[2024-07-10 05:34] LABS: Alanine Aminotransferase 18 U/L (6-35); Albumin Level 2.9 g/dL (3.5-5.1); Alkaline Phosphatase 82 U/L (38-126); Anion Gap 6 mmol/L (4-12); Aspartate Amino Transferase 16 U/L (14-36); Bilirubin,Total 0.2 mg/dL (0.2-1.3); Blood Urea Nitrogen 4 mg/dL (7-17); Calcium 7.9 mg/dL (8.4-10.2); Carbon Dioxide 20 mmol/L (22-30); Chloride 110 mmol/L (98-107); Estimated CRCL calculation 164 ml/min; Estimated Glomerular Filt Rate > 60; Glucose 104 mg/dL (65-110); Potassium 3.4 mmol/L (3.4-5.0); Sodium 136 mmol/L (137-145)
--- NOTE | 2024-07-10 07:30 | P.PNOB_ITS ---
OB - PN: Subj Subjective Date/time seen: 07/10/24 07:30 Narrative: HD#2 Ebenezer reports doing much better this morning. She denies any fevers. She reports her pain is much improved. She is urinating normally (no longer having frequency, urgency). She has tolerated regular diet; no N/V. She reports good movements. No VB, LOF, ctxs. OB - PN: Obj Data Labs 07/10/24 05:07 07/10/24 05:07 Labs: Laboratory Results - last 24 hr 07/10/24 05:07 WBC 13.4 H RBC 2.79 L Hgb 9.0 L Hct 26.4 L MCV 94.6 MCH 32.3 MCHC 34.1 RDW 12.8 Plt Count 160 MPV 10.4 Immature Gran % (Auto) 0.4 Neut % (Auto) 76.4 H Lymph % (Auto) 11.6 L [place] % (Auto) 11.1 H Eos % (Auto) 0.4 Baso % (Auto) 0.1 L Lymph # (Auto) 1.55 [place] # (Auto) 1.5 H Eos # (Auto) 0.1 Baso # (Auto) 0.0 Abs Immat Gran (auto) 0.06 H Absolute Neuts (auto) 10.2 H Absolute Nucleated RBC 0.000 Nucleated RBC % 0.0 Sodium 136 L Potassium 3.4 Chloride 110 H Carbon Dioxide 20 L Anion Gap 6 BUN 4 L Creatinine 0.43 L Estim Creat Clear Calc 164 Estimated GFR > 60 Glucose 104 Calcium 7.9 L Total Bilirubin 0.2 AST 16 ALT 18 Alkaline Phosphatase 82 Total Protein 6.0 L Albumin 2.9 L OB - PN A/P Assessment and Plan (1) Pyelonephritis during : Code(s): O23.00 - Infections of kidney in , unspecified trimester Status: Acute Plan - Pt symptomatically improved; has been afebrile since admission - Urine culture pending (will f/u) - CBC/CMP w/ decreasing WBC, normal cr - ceftriaxone 1g q24h; second dose today at noon - will send home on bactrim DS BID x 7 days, then continue cephalexin 250mg qhs until delivery Time Spent With Patient Time: Total time spent is greater than 50% in coordination of care (as documented) at patient's floor/unit and/or counseling patient: Review of Systems 2 Constitutional: Constitutional: Denies chills, Denies fever(s) and Denies headache(s) Cardiovascular: Cardiovascular: Denies chest pain Respiratory: Respiratory: Denies dyspnea Gastrointestinal: Gastrointestinal: Denies abdominal pain, Denies nausea and Denies vomiting Genitourinary: Genitourinary: Denies abnormal vaginal bleeding, Denies dysuria and Denies pelvic pain Exam 2 Const: General: cooperative, healthy appearing, comfortable and no acute distress Resp: Effort & Inspection: normal respiratory effort Auscultation: clear to auscultation bilaterally Cardio: Rate: regular rate GI: Inspection: normal to inspection GI Palp: No abdominal tenderness A uscultation: normal bowel sounds Skin: General skin exam: normal color Neuro: General: patient oriented x3 Extrem: General: normal to inspection Psych: Appearance: grossly normal Affect: normal affect Attitude: c ooperative
[2024-07-10 08:05] VITALS: BP 121/75; PULSE 88
[2024-07-10 08:11] VITALS: TEMP 36.7
--- NOTE | 2024-07-10 12:10 | PC.NURSE ---
Doppler of FHT's 140's
--- NOTE | 2024-07-11 07:50 | P.DS_ITS ---
DS: Admitting Diagnosis Discharge Date 07/10/24 Admitting Diagnosis pyelonephritis DS: Discharge Diagnosis Discharge Diagnosis (1) Pyelonephritis during : Code(s): O23.00 - Infections of kidney in , unspecified trimester Status: Acute OB - DS: Summary Hospital Course Hospital Course: Ebenezer is a 24yo who was admitted at 22wga due to fever, leukocytosis, CVA tenderness and was found to have infection on UA (diagnosed with pyelonephritis). she was started on IV antibiotics and IV fluids. She received two doses of ceftriaxone 1g IV q24 hr. She remained afebrile the remainder of her stay and her leukocytosis decreased. She was no longer having any urinary symptoms, back pains. She was tolerating regular diet. She was using the restroom normally. She felt good movement. No vaginal bleeding or abnormal vaginal discharge. she was discharged home and will complete 7 days of bactrim DS and will then continue taking cephalexin daily the remainder of her . OB Procedures : None OB Procedures Intrapartum: Other (did not deliver this admission; was admitted to antepartum) OB Procedures: : None Status at Discharge Functional status at discharge: independent ambulation Overall status at discharge: patient is back to baseline Time Spent with Patient Time attestation: Total time spent providing and/or coordinating discharge services: Exam Const: General: cooperative, healthy appearing, comfortable and no acute distress Resp: Effort & Inspection: normal respiratory effort Auscultation: clear to auscultation bilaterally Cardio: Rate: regular rate GI: Inspection: normal to inspection GI Palp: No abdominal tenderness Auscultation: normal bowel sounds Skin: General skin exam: normal color Neuro: General: patient oriented x3 Extrem: General: normal to inspection Psych: Appearance: grossly normal Affect: normal affect Attitude: cooperative DS: Data Data Completed and Pending Labs on day of discharge: Preliminary micro results at discharge 07/09/24 22:06 Urine Culture - Preliminary Unspecified Staphylococcus saprophyticus Discharge Plan Discharge Attending physician on discharge: Shannon Merritt Consulting providers: Lazaro Davalos; Lavelle Beatty; Antionette Dudley Discharging Clinician: Shannon Merritt Patient Disposition: Home, Self-Care Activity: may shower Diet: regular Discharge Instructions: OB ANTEPARTUM DISCHARGE INSTRUCTIONS This information is given to help you properly care for yourself at home after your discharge from the hospital. Follow these instructions until your doctor tells you otherwise. DIET: Drink at Least Eight 8-Ounce Glasses of Caffeine-Free Beverages Daily Additional Diet Instructions: ACTIVITY: As Tolerated Additional Activity Instructions: RETURN TO LABOR AND DELIVERY IF YOU HAVE: Any Change In Baby's Normal Movement Pattern Any Leakage of Fluid Vaginal Bleeding Additional Reasons to Return to Labor and Delivery: Contractions may feel like abdominal pain, tightening, cramping, pressure, back ache, or thigh ache. FOLLOW-UP CARE: Keep Next Scheduled Appointment To see in/on Valuables released to patient or family? N/A Medications from home returned to patient? N/A I Acknowledge Receipt of and Understand the Above Instructions IF YOU HAVE ANY QUESTIONS REGARDING THESE INSTRUCTIONS, PLEASE CALL [phone]. IF PROBLEMS ARISE, CALL YOUR PROVIDER. IF EMERGENCY CARE IS NEEDED, [facility]S EMERGENCY ROOM IS AVAILABLE 24 HOURS A DAY. Patient Instructions: Antibiotic Form Patient Language: Citizen Of [place] Stand Alone Forms: General Discharge Information Follow-up/Referrals: Shannon Merritt MD [Physician] - Keep Reg. Scheduled Appt. Discharge Medications: New sulfamethoxazole-trimethoprim [Bactrim DS] 800-160 mg tablet 1 tablet PO Q12H 7 Days Qty: 14 0RF fluconazole 150 mg tablet 150 mg PO Q72H Qty: 2 0RF cephalexin 250 mg capsule 250 mg PO QHS Qty: 90 1RF Rx Instructions: take 1 cap at bedtime daily until delivery Continued Classic 28 mg iron- 800 mcg tablet 1 tablet PO .qd 30 Days Qty: 30 6RF acetaminophen 325 mg capsule 325 mg PO Q4-6H PRN (Reason: fever or pain) Date of admission: 07/09/24 08:56 Primary Care Provider: PHYSICIAN,ROAD TESTER Admitting Provider: Remi Espinosa Attending physician on admission: Shannon Merritt Condition: Stable
== END 2024-07-10 12:13 | disposition home or self-care (01) | DRG 832 ==
LOC: ANHED 07-09 01:45 → ANH3MEDSUR 07-09 03:10 → ANHOBPP 07-09 06:41
PROVIDERS: Admitting Provider Obstetrics & Gynecology; Emergency Provider Student in an Organized Health Care Education/Training Program; Visit Provider Obstetrics & Gynecology
DX: O23.02 Infections of kidney in pregnancy, second trimester (principal); N13.6 Pyonephrosis; Z3A.22 22 weeks gestation of pregnancy; B95.7 Other staphylococcus as the cause of diseases classified elsewhere
CPT/HCPCS: 36415; 80053; 81001; 81025; 85025; 87086; 87181; 96365; 99285; A9270; G0378; J0690; J0696; J7030

== ENCOUNTER 2024-09-17 09:34 | Outpatient (CLI) | payer BC, SELFPAY ==
[2024-09-17 09:46] VITALS: BP 146/89; PULSE 94
--- OUTSIDE RECORDS SUMMARY | 2024-09-17 09:58 | XMS_ITS | Clinical Summary ---
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
[2024-09-17 10:01] VITALS: BP 133/93; PULSE 97
[2024-09-17 10:13] LABS: Basophils Percent Auto 0.2 % (0.2-1.2); Eosinophils Absolute Auto 0.2 K/mm3 (0-0.3); Eosinophils Percent Auto 1.1 % (0-4.4); Hematocrit 34.6 % (37.0-47.0); Hemoglobin 11.6 g/dL (12.0-15.0); Immature Granulocyte Absolute 0.18 K/mm3 (0.00-0.031); Immature Granulocyte Percent A 1.3 % (0-0.5); Lymphocytes Absolute Auto 1.87 K/mm3 (0.9-3.2); Lymphocytes Percent Auto 13.1 % (18.3-44.2); Mean Corpuscular HGB Conc 33.5 g/dl (32-36); Mean Corpuscular Hemoglobin 31.8 pg (26-34); Mean Corpuscular Volume 94.8 fl (80-100); Mean Platelet Volume 10.5 fl (7.4-10.4); Monocytes Absolute Auto 0.9 K/mm3 (0.1-0.6); Monocytes Percent Auto 6.2 % (2.6-8.5); Neutrophils Absolute Auto 11.1 K/mm3 (1.3-6.7); Neutrophils Percent Auto 78.1 % (45.5-73.1); Platelet Count Result 190 k/mm3 (150-375); Red Blood Count 3.65 M/mm3 (4.2-5.4); Red Cell Distribution Width 13.2 % (11.5-14.5); White Blood Count 14.2 K/mm3 (4.5-10.0)
[2024-09-17 10:14] LABS: Add Urine Microscopic? NO; Appearance Urine Clear (Clear); Bilirubin Urine Negative (Negative); Blood Urine Negative (Negative); Color Urine Yellow (Yellow); Glucose Urine UA Negative (Negative); Ketones Urine Negative (Negative); Leukocyte Esterase Ur Negative LEU/UL (Negative); Nitrate Urine Negative (Negative); Protein Urine Negative (Negative); Specific Grav Ur 1.012 (1.001-1.035); Urobilinogen Urine 0.2 mg/dL (<2.0); pH Urine 6.5 (5.0-9.0)
[2024-09-17 10:16] VITALS: BP 133/80; PULSE 88
[2024-09-17 10:25] LABS: Alanine Aminotransferase 27 U/L (6-35); Albumin Level 3.5 g/dL (3.5-5.1); Alkaline Phosphatase 108 U/L (38-126); Anion Gap 6 mmol/L (4-12); Aspartate Amino Transferase 30 U/L (14-36); Bilirubin,Total 0.4 mg/dL (0.2-1.3); Blood Urea Nitrogen 11 mg/dL (7-17); Calcium 9.3 mg/dL (8.4-10.2); Carbon Dioxide 22 mmol/L (22-30); Chloride 104 mmol/L (98-107); Estimated Glomerular Filt Rate > 60; Glucose 127 mg/dL (65-110); Potassium 3.8 mmol/L (3.4-5.0); Sodium 132 mmol/L (137-145); Uric Acid 5.7 mg/dL (2.5-7.5)
[2024-09-17 10:31] VITALS: BP 132/92; PULSE 96
[2024-09-17 10:40] LABS: Creatinine Urine 51.5 mg/dL; Total Protein Urine Random 7 mg/dL; Ur Ttl Prot Creatinine Ratio 0.14 mg/mg (0-0.20)
[2024-09-17 10:46] VITALS: BP 132/85; PULSE 96
--- NOTE | 2024-09-17 10:47 | PC.NURSE ---
Dr Merritt informed of BP's, lab results and reactive NST. OK to dc home, patient to start weekly NST's on fridays.
[2024-09-17 10:55] VITALS: BP 146/89; PULSE 97
== END 2024-09-17 10:55 | disposition home or self-care (01) ==
LOC: ANHOBOP 09:39 → ANHOBPP 09:40
PROVIDERS: Visit Provider Obstetrics & Gynecology
DX: O13.9 Gestational [pregnancy-induced] hypertension without significant proteinuria, unspecified trimester (principal); Z3A.00 Weeks of gestation of pregnancy not specified
CPT/HCPCS: 36415; 59025; 80053; 81003; 82570; 84156; 84550; 85025; 99199

== ENCOUNTER 2024-09-25 15:12 | Outpatient (CLI) | payer BC, SELFPAY ==
--- NOTE | ~2024-09-25 | US_ITS ---
LIMITED OBSTETRIC ULTRASOUND/BIOPHYSICAL PROFILE Ordering provider: Shannon Merritt MD History: . PIH eval; ALEXUS and GROWTH,please . Comparison: None. FINDINGS: MATERNAL CERVIX: Not visualized. cm which is normal (normal is equal to or greater than 3.0 cm). PRESENTATION: Vertex. Longitudinal lie. PLACENTAL LOCATION: Maternal posterior and to the left. No previa. HEART RATE: 154 bpm (normal is between 110 to 160 bpm). AMNIOTIC FLUID INDEX: 14.4 cm. 5th percentile is 8.3 cm. 95th percentile is 24.5 cm. Largest vertica l pocket is 6.41 cm. normal (ALEXUS between 5-25 cm in from 20-35 weeks gestation is considered normal). Estimated weight is 2559 gm. EFW/GP: 88.2%. -- BIOMETRICS: BPD: 84.5 mm = 34 weeks. HC: 306.5 mm = 34 weeks and 1 day. FL: 65.5 mm = 33 weeks and 5 days. AC: 320 mm = 35 weeks and 6 days. HC/AC: 0.96. FL/BPD: 77.43. FL/AC: 20.46. CI: 78.81 OTHER: Maternal ovaries not visualized. SCORE: breathing movements: 2 movements: 2 tone: 2 Amniotic fluid volume: 2 Total: 8 Fluid is seen around the testicles in the scrotal sac. IMPRESSION: Normal biophysical profile. AUA is 34 weeks and 3 days. OSBALDO is November 03, 2024. Reviewed, dictated and finalized at location A.
[2024-09-25 15:41] VITALS: BP 144/91; PULSE 81
[2024-09-25 15:45] VITALS: BP 147/98; PULSE 85
[2024-09-25 16:00] VITALS: BP 151/92; PULSE 81
[2024-09-25 16:13] LABS: Basophils Percent Auto 0.3 % (0.2-1.2); Eosinophils Absolute Auto 0.1 K/mm3 (0-0.3); Eosinophils Percent Auto 1.2 % (0-4.4); Hematocrit 32.2 % (37.0-47.0); Hemoglobin 10.9 g/dL (12.0-15.0); Immature Granulocyte Absolute 0.11 K/mm3 (0.00-0.031); Immature Granulocyte Percent A 1.1 % (0-0.5); Lymphocytes Percent Auto 16.5 % (18.3-44.2); Mean Corpuscular HGB Conc 33.9 g/dl (32-36); Mean Corpuscular Hemoglobin 32.1 pg (26-34); Mean Corpuscular Volume 94.7 fl (80-100); Mean Platelet Volume 11.5 fl (7.4-10.4); Monocytes Absolute Auto 0.9 K/mm3 (0.1-0.6); Monocytes Percent Auto 8.6 % (2.6-8.5); Neutrophils Absolute Auto 7.5 K/mm3 (1.3-6.7); Neutrophils Percent Auto 72.3 % (45.5-73.1); Platelet Count Result 195 k/mm3 (150-375); Red Cell Distribution Width 13.1 % (11.5-14.5); White Blood Count 10.3 K/mm3 (4.5-10.0)
[2024-09-25 16:15] VITALS: BP 134/92; PULSE 75
[2024-09-25 16:19] VITALS: BP 134/92; PULSE 82
[2024-09-25 16:25] LABS: Alanine Aminotransferase 18 U/L (6-35); Albumin Level 3.3 g/dL (3.5-5.1); Alkaline Phosphatase 132 U/L (38-126); Anion Gap 6 mmol/L (4-12); Aspartate Amino Transferase 24 U/L (14-36); Bilirubin,Total 0.3 mg/dL (0.2-1.3); Blood Urea Nitrogen 10 mg/dL (7-17); Calcium 9.3 mg/dL (8.4-10.2); Carbon Dioxide 19 mmol/L (22-30); Chloride 107 mmol/L (98-107); Estimated Glomerular Filt Rate > 60; Glucose 127 mg/dL (65-110); Sodium 132 mmol/L (137-145); Total Protein 6.2 g/dL (6.3-8.2); Uric Acid 6.4 mg/dL (2.5-7.5)
[2024-09-25 16:29] LABS: Add Urine Microscopic? YES; Appearance Urine Clear (Clear); Bacteria Urine 2+ /hpf; Bilirubin Urine Negative (Negative); Blood Urine Negative (Negative); Color Urine Yellow (Yellow); Glucose Urine UA Negative (Negative); Ketones Urine Negative (Negative); Leukocyte Esterase Ur Negative LEU/UL (Negative); Need Manual Microscopic Reviewed; Nitrate Urine Negative (Negative); Non Pathogenic Casts 0-2; Protein Urine Trace mg/dL (Negative); RBC Urine 0-2 /hpf (0-2); Specific Grav Ur 1.016 (1.001-1.035); Squamous Epithelial Cell Urine Occasional /hpf (Few)
[2024-09-25 16:50] LABS: Creatinine Urine 80.4 mg/dL; Total Protein Urine Random 15 mg/dL; Ur Ttl Prot Creatinine Ratio 0.19 mg/mg (0-0.20)
== END 2024-09-25 17:25 | disposition home or self-care (01) ==
LOC: ANHOBOP 15:17 → ANHOBPP 15:19
PROVIDERS: Visit Provider Obstetrics & Gynecology
DX: O13.9 Gestational [pregnancy-induced] hypertension without significant proteinuria, unspecified trimester (principal); Z3A.00 Weeks of gestation of pregnancy not specified
CPT/HCPCS: 36415; 59025; 76816; 76819; 80053; 81001; 82570; 84156; 84550; 85025; 87086; 99199

== ENCOUNTER 2024-09-30 10:56 | Outpatient (CLI) | payer BC, SELFPAY ==
--- OUTSIDE RECORDS SUMMARY | 2024-09-30 11:03 | XMS_ITS | Clinical Summary ---
Author Organization 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
[2024-09-30 11:30] VITALS: BP 138/94; PULSE 92; PULSE 97; BMI 33.7
[2024-09-30 11:32] LABS: Basophils Percent Auto 0.2 % (0.2-1.2); Eosinophils Absolute Auto 0.1 K/mm3 (0-0.3); Eosinophils Percent Auto 0.9 % (0-4.4); Hematocrit 33.3 % (37.0-47.0); Hemoglobin 11.5 g/dL (12.0-15.0); Immature Granulocyte Absolute 0.11 K/mm3 (0.00-0.031); Immature Granulocyte Percent A 0.7 % (0-0.5); Lymphocytes Absolute Auto 2.01 K/mm3 (0.9-3.2); Lymphocytes Percent Auto 12.5 % (18.3-44.2); Mean Corpuscular HGB Conc 34.5 g/dl (32-36); Mean Corpuscular Volume 92.8 fl (80-100); Mean Platelet Volume 11.2 fl (7.4-10.4); Monocytes Absolute Auto 1.3 K/mm3 (0.1-0.6); Monocytes Percent Auto 7.8 % (2.6-8.5); Neutrophils Absolute Auto 12.6 K/mm3 (1.3-6.7); Neutrophils Percent Auto 77.9 % (45.5-73.1); Platelet Count Result 189 k/mm3 (150-375); Red Blood Count 3.59 M/mm3 (4.2-5.4); Red Cell Distribution Width 12.9 % (11.5-14.5); White Blood Count 16.1 K/mm3 (4.5-10.0)
[2024-09-30 11:34] LABS: Add Urine Microscopic? NO; Appearance Urine Clear (Clear); Bilirubin Urine Negative (Negative); Blood Urine Negative (Negative); Color Urine Yellow (Yellow); Glucose Urine UA Negative (Negative); Ketones Urine Negative (Negative); Leukocyte Esterase Ur Negative LEU/UL (Negative); Nitrate Urine Negative (Negative); Protein Urine Negative (Negative); Specific Grav Ur 1.006 (1.001-1.035); Urobilinogen Urine 0.2 mg/dL (<2.0); pH Urine 6.5 (5.0-9.0)
[2024-09-30 11:40] LABS: Creatinine Urine 33.4 mg/dL; Total Protein Urine Random 16 mg/dL; Ur Ttl Prot Creatinine Ratio 0.48 mg/mg (0-0.20)
[2024-09-30 11:42] LABS: Alanine Aminotransferase 21 U/L (6-35); Albumin Level 3.6 g/dL (3.5-5.1); Alkaline Phosphatase 131 U/L (38-126); Anion Gap 7 mmol/L (4-12); Aspartate Amino Transferase 29 U/L (14-36); Bilirubin,Total 0.4 mg/dL (0.2-1.3); Blood Urea Nitrogen 10 mg/dL (7-17); Calcium 9.3 mg/dL (8.4-10.2); Carbon Dioxide 19 mmol/L (22-30); Chloride 107 mmol/L (98-107); Estimated Glomerular Filt Rate > 60; Glucose 70 mg/dL (65-110); Potassium 4.1 mmol/L (3.4-5.0); Sodium 133 mmol/L (137-145); Total Protein 6.7 g/dL (6.3-8.2); Uric Acid 6.3 mg/dL (2.5-7.5)
[2024-09-30 11:45] VITALS: BP 136/87; PULSE 89
[2024-09-30 12:00] VITALS: BP 132/87; PULSE 80
--- NOTE | 2024-09-30 12:11 | PC.NURSE ---
Dr. Espinosa (covering for Dr. Merritt) informed of pt's arrival with c/o BP 157/115 at home. Informed of reactive NST, BP's, and labs. Order received to send supplies home for pt to do 24 hr urine collection. She is to bring her BP cuff with her at her next visit so it can be assessed for accuracy. OK to discharge.
[2024-09-30 12:14] VITALS: BP 132/87; PULSE 85
== END 2024-09-30 12:40 | disposition home or self-care (01) ==
LOC: ANHOBOP 11:02 → ANHOBPP 11:04
PROVIDERS: Obstetrics & Gynecology; Visit Provider Obstetrics & Gynecology
DX: O13.9 Gestational [pregnancy-induced] hypertension without significant proteinuria, unspecified trimester (principal); Z3A.00 Weeks of gestation of pregnancy not specified
CPT/HCPCS: 36415; 59025; 80053; 81003; 82570; 84156; 84550; 85025

== ENCOUNTER 2024-10-01 12:33 | Outpatient (NON) | payer BC, SELFPAY ==
[2024-10-01 12:57] VITALS: BMI 33.7
[2024-10-01 13:18] LABS: Collection Time Urine 24 HOURS
[2024-10-01 13:19] LABS: Specific Gravity Ur 1.011; Total Volume 24 Hour Urine 2700 ml
[2024-10-01 13:27] LABS: Creatinine Clearance Urine 162.6 ml/min (75-125); Creatinine Urine 53.3 mg/dL; Patient Weight 196 Lbs; Serum Creat 0.55; Total Protein Urine 24 Hr 378 mg/24hr (28-141); Total Protein Urine Random 14 mg/dL
--- OUTSIDE RECORDS SUMMARY | 2024-10-01 13:28 | XMS_ITS | Clinical Summary ---
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
== END 2024-10-01 12:34 | disposition home or self-care (01) ==
LOC: ANHOBOP 12:39
PROVIDERS: Visit Provider Obstetrics & Gynecology
DX: O13.9 Gestational [pregnancy-induced] hypertension without significant proteinuria, unspecified trimester (principal); Z3A.00 Weeks of gestation of pregnancy not specified
CPT/HCPCS: 81050; 82575; 84156

== ENCOUNTER 2024-10-01 22:25 | Observation (INO) | payer BC, SELFPAY ==
[2024-10-01] VITALS (7 sets, daily range): BP systolic 135–158; BP diastolic 82–108; PULSE 79–95; BMI 35.5
--- OUTSIDE RECORDS SUMMARY | 2024-10-01 21:14 | XMS_ITS | Clinical Summary ---
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
[2024-10-01 21:44] LABS: Basophils Percent Auto 0.3 % (0.2-1.2); Eosinophils Absolute Auto 0.1 K/mm3 (0-0.3); Eosinophils Percent Auto 0.8 % (0-4.4); Hemoglobin 11.2 g/dL (12.0-15.0); Immature Granulocyte Absolute 0.09 K/mm3 (0.00-0.031); Immature Granulocyte Percent A 0.6 % (0-0.5); Lymphocytes Absolute Auto 2.28 K/mm3 (0.9-3.2); Lymphocytes Percent Auto 16.1 % (18.3-44.2); Mean Corpuscular HGB Conc 33.9 g/dl (32-36); Mean Corpuscular Hemoglobin 31.7 pg (26-34); Mean Corpuscular Volume 93.5 fl (80-100); Mean Platelet Volume 11.1 fl (7.4-10.4); Neutrophils Absolute Auto 10.7 K/mm3 (1.3-6.7); Neutrophils Percent Auto 75.2 % (45.5-73.1); Platelet Count Result 187 k/mm3 (150-375); Red Blood Count 3.53 M/mm3 (4.2-5.4); Red Cell Distribution Width 13.2 % (11.5-14.5); White Blood Count 14.2 K/mm3 (4.5-10.0)
--- NOTE | 2024-10-01 21:45 | OBADM ---
This patient, Ebenezer Espinal, admitted to the OB room OB Post 116 for observation. Patient/family oriented to hospital policies and general routines including ID bracelet, bed and alarms, visiting hours, pain management, procedures, bathroom and other care routines, personal items, smoking policy, room service/diet, and visiting hours. Patient/Family are encouraged to report perceived risks to care and to ask questions if they do not understand what they are told or what they should do.
[2024-10-01 22:01] LABS: Alanine Aminotransferase 19 U/L (6-35); Albumin Level 3.8 g/dL (3.5-5.1); Alkaline Phosphatase 141 U/L (38-126); Anion Gap 8 mmol/L (4-12); Aspartate Amino Transferase 25 U/L (14-36); Bilirubin,Total 0.4 mg/dL (0.2-1.3); Blood Urea Nitrogen 12 mg/dL (7-17); Calcium 9.3 mg/dL (8.4-10.2); Carbon Dioxide 19 mmol/L (22-30); Chloride 106 mmol/L (98-107); Estimated Glomerular Filt Rate > 60; Glucose 85 mg/dL (65-110); Potassium 3.8 mmol/L (3.4-5.0); Sodium 133 mmol/L (137-145); Uric Acid 5.8 mg/dL (2.5-7.5)
[2024-10-01] MEDS: BETAMETHASONE SOD PHOS/ACETATE 30 MG/5 ML VIAL 12 MG IM (22:06)
[2024-10-02] VITALS (10 sets, daily range): BP systolic 120–144; BP diastolic 64–92; PULSE 70–81; TEMP 36.6–37.2
--- NOTE | 2024-10-02 07:09 | PM.OBTRLD ---
OB - Triage/Final Diagnosis Visit Information Comments/Additional reasons for admission: I have assessed the risk for this patient, Ebenezer Espinal, and determined that she would benefit from observation care. Evaluation Laboratory results: Laboratory Tests 10/01/24 21:26 WBC 14.2 H RBC 3.53 L Hgb 11.2 L Hct 33.0 L MCV 93.5 MCH 31.7 MCHC 33.9 RDW 13.2 Plt Count 187 MPV 11.1 H Immature Gran % (Auto) 0.6 H Neut % (Auto) 75.2 H Lymph % (Auto) 16.1 L [place] % (Auto) 7.0 Eos % (Auto) 0.8 Baso % (Auto) 0.3 Lymph # (Auto) 2.28 [place] # (Auto) 1.0 H Eos # (Auto) 0.1 Baso # (Auto) 0.0 Abs Immat Gran (auto) 0.09 H Absolute Neuts (auto) 10.7 H Absolute Nucleated RBC 0.000 Nucleated RBC % 0.0 Sodium 133 L Potassium 3.8 Chloride 106 Carbon Dioxide 19 L Anion Gap 8 BUN 12 Creatinine 0.52 L Estim Creat Clear Calc Not Reportable Estimated GFR > 60 Glucose 85 Uric Acid 5.8 Calcium 9.3 Total Bilirubin 0.4 AST 25 ALT 19 Alkaline Phosphatase 141 H Total Protein 7.0 Albumin 3.8 Vital signs: Vital Signs - 24 hr 10/01/24 21:30 10/01/24 21:45 10/01/24 21:45 Temperature Pulse Rate 90 92 Blood Pressure 153/103 H 158/108 H Oxygen Delivery Room Air 10/01/24 22:00 10/01/24 22:15 10/01/24 22:30 Temperature Pulse Rate 95 81 89 Blood Pressure 144/102 H 146/90 H 141/99 H Oxygen Delivery 10/01/24 23:00 10/01/24 23:30 10/02/24 01:00 Temperature Pulse Rate 84 79 75 Blood Pressure 143/93 H 135/82 140/87 Oxygen Delivery 10/02/24 02:00 10/02/24 02:55 10/02/24 03:00 Temperature 98.9 F Pulse Rate 81 70 Blood Pressure 141/85 H 125/86 Oxygen Delivery 10/02/24 04:00 10/02/24 05:00 10/02/24 06:00 Temperature Pulse Rate 75 70 72 Blood Pressure 144/92 H 142/83 H 120/72 Oxygen Delivery 10/02/24 07:00 Temperature Pulse Rate 71 Blood Pressure 120/64 Oxygen Delivery Final Diagnosis (1) Pre-eclampsia: Code(s): O14.90 - Unspecified pre-eclampsia, unspecified trimester Status: Acute Plan: - labs/BPs monitored overnight; stable - pt asymptomatic - ANCS last night, repeat in 24 hours - continue twice weekly NST, weekly BPP, weekly visit and plan for IOL @ 37wks.
--- OUTSIDE RECORDS SUMMARY | 2024-10-03 07:19 | XMS_ITS | Clinical Summary ---
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
== END 2024-10-02 08:29 | disposition home or self-care (01) ==
LOC: ANHOBPP 10-02 08:16 → ANHOBOP 10-03 07:17 → ANHOBPP 10-03 07:18
PROVIDERS: Admitting Provider Obstetrics & Gynecology; Visit Provider Obstetrics & Gynecology
DX: O14.93 Unspecified pre-eclampsia, third trimester (principal); Z3A.35 35 weeks gestation of pregnancy
CPT/HCPCS: 36415; 80053; 84550; 85025; 96372; 99199; G0378; G0379; J0702

== ENCOUNTER 2024-10-02 21:45 | Outpatient (CLI) | payer BC, SELFPAY ==
--- OUTSIDE RECORDS SUMMARY | 2024-10-02 21:53 | XMS_ITS | Clinical Summary ---
Author Organization [facility] Address [address] [place] [id number] Care Team Providers Care Machine Packer Name Role Phone Unavailable Primary Care Provider Unavailabl e Social History Tobacco Use Types Packs/Day Years Used Date Smoking Tobacco: Never Assessed Comments Unknown Sex and Gender Information Value Date Recorded Sex Assigned at Not on file Legal Sex Female 11:09 AM TELEPHONE ANSWERER Gender Identity Not on file Sexual Orientation [...]
[2024-10-02] MEDS: BETAMETHASONE SOD PHOS/ACETATE 30 MG/5 ML VIAL 12 MG IM (22:04)
== END 2024-10-02 22:05 | disposition home or self-care (01) ==
LOC: ANHOBOP 21:51 → ANHLDR 21:53
PROVIDERS: Visit Provider Obstetrics & Gynecology
DX: O14.90 Unspecified pre-eclampsia, unspecified trimester (principal); Z3A.00 Weeks of gestation of pregnancy not specified
CPT/HCPCS: 96372; J0702

== ENCOUNTER 2024-10-15 11:08 | Outpatient (RCR) | payer BC, SELFPAY ==
[2024-09-21 10:31] VITALS: BP 124/80; PULSE 88
[2024-09-28 11:44] VITALS: BP 131/83; PULSE 88
[2024-10-05 10:56] VITALS: BP 139/96; PULSE 91
[2024-10-08 11:38] LABS: Hematocrit 34.8 % (37.0-47.0); Hemoglobin 12.0 g/dL (12.0-15.0); Immature Granulocyte Percent A 0.9 % (0-0.5); Lymphocytes Absolute Auto 2.33 K/mm3 (0.9-3.2); Mean Corpuscular HGB Conc 34.5 g/dl (32-36); Mean Corpuscular Hemoglobin 32.2 pg (26-34); Mean Corpuscular Volume 93.3 fl (80-100); Nucleated Red Blood Cells Absolute Auto 0.000 K/mm3 (0.0-0.012); Nucleated Red Blood Cells Perc 0.0 % (0.0-0.2); Platelet Count Result 224 k/mm3 (150-375); Red Blood Count 3.73 M/mm3 (4.2-5.4); White Blood Count 18.7 K/mm3 (4.5-10.0)
[2024-10-08 11:45] LABS: Alanine Aminotransferase 13 U/L (6-35); Albumin Level 3.4 g/dL (3.5-5.1); Alkaline Phosphatase 120 U/L (38-126); Anion Gap 8 mmol/L (4-12); Aspartate Amino Transferase 20 U/L (14-36); Bilirubin,Total 0.3 mg/dL (0.2-1.3); Blood Urea Nitrogen 14 mg/dL (7-17); Calcium 9.3 mg/dL (8.4-10.2); Carbon Dioxide 18 mmol/L (22-30); Chloride 105 mmol/L (98-107); Estimated Glomerular Filt Rate > 60; Glucose 133 mg/dL (65-110); Potassium 3.9 mmol/L (3.4-5.0); Sodium 131 mmol/L (137-145); Total Protein 6.5 g/dL (6.3-8.2); Uric Acid 6.5 mg/dL (2.5-7.5)
[2024-10-08 12:05] VITALS: BP 139/97; PULSE 92
[2024-10-12 14:44] VITALS: BP 147/94; PULSE 110
--- NOTE | ~2024-10-15 | US_ITS ---
EXAMINATION: US OB BPP wo non-stress DATE: 10/05/2024 12:08 INDICATION: Preeclampsia. Assess biophysical profile and amniotic fluid index during third trimester . TECHNIQUE: Real-time pelvic ultrasound was performed. The interpreting radiologist was not present fo r the study. COMPARISON: None. FINDINGS: There is a single living fetus in vertex presentation. The placenta is on the posterior maternal lef t. heart rate is 142 beats per minute (bpm). Biophysical profile performed by the technologist: breathing (30 sec sustained breathing in 30 minutes): 2 out of 2 movement (3 gross body movements in 30 minutes): 2 out of 2 tone (one episode of beqzxak-hugooopaw-fujupqg limb movement): 2 out of 2 Amniotic fluid pocket (2 cm): 2 out of 2 Total score: 8 out of 8 IMPRESSION: 1. Single living fetus in vertex presentation with heart rate of 142 bpm. 2. Biophysical profile 8 out of 8. Reviewed, dictated and finalized at location A.
--- NOTE | ~2024-10-15 | US_ITS ---
EXAMINATION: US OB BPP wo non-stress DATE: 10/12/2024 14:24 INDICATION: Hypertension during third trimester of TECHNIQUE: Real-time pelvic ultrasound was performed. The interpreting radiologist was not present fo r the study. COMPARISON: 10/05/2024 FINDINGS: There is a single living fetus in vertex presentation. The placenta is left posterior and not low-ly ing. heart rate is 145 beats per minute (bpm). Normal amniotic fluid index of 21.9 cm (5th%-95% : 7.9-184.9 cm at 35 weeks estimated gestational age) Biophysical profile performed by the technologist: breathing (30 sec sustained breathing in 30 minutes): 2 out of 2 movement (3 gross body movements in 30 minutes): 2 out of 2 tone (one episode of mvtgrgo-ymkyrlirv-gyyysie limb movement): 2 out of 2 Amniotic fluid pocket (2 cm): 2 out of 2 Total score: 8 out of 8 IMPRESSION: 1. Single living fetus in vertex presentation with heart rate of 145 bpm. 2. Biophysical profile 8 out of 8. 3. Normal amniotic fluid index of 21.9 cm. Reviewed, dictated and finalized at location A.
[2024-10-15 11:33] LABS: Hematocrit 34.4 % (37.0-47.0); Hemoglobin 11.8 g/dL (12.0-15.0); Immature Granulocyte Percent A 1.2 % (0-0.5); Lymphocytes Absolute Auto 1.86 K/mm3 (0.9-3.2); Mean Corpuscular HGB Conc 34.3 g/dl (32-36); Mean Corpuscular Hemoglobin 32.1 pg (26-34); Mean Corpuscular Volume 93.5 fl (80-100); Nucleated Red Blood Cells Absolute Auto 0.000 K/mm3 (0.0-0.012); Nucleated Red Blood Cells Perc 0.0 % (0.0-0.2); Platelet Count Result 194 k/mm3 (150-375); Red Blood Count 3.68 M/mm3 (4.2-5.4); White Blood Count 15.6 K/mm3 (4.5-10.0)
[2024-10-15 11:50] LABS: Alanine Aminotransferase 17 U/L (6-35); Albumin Level 3.4 g/dL (3.5-5.1); Alkaline Phosphatase 135 U/L (38-126); Anion Gap 6 mmol/L (4-12); Aspartate Amino Transferase 24 U/L (14-36); Bilirubin,Total 0.4 mg/dL (0.2-1.3); Blood Urea Nitrogen 13 mg/dL (7-17); Calcium 9.4 mg/dL (8.4-10.2); Carbon Dioxide 19 mmol/L (22-30); Chloride 106 mmol/L (98-107); Estimated Glomerular Filt Rate > 60; Glucose 115 mg/dL (65-110); Potassium 3.8 mmol/L (3.4-5.0); Sodium 131 mmol/L (137-145); Total Protein 6.6 g/dL (6.3-8.2); Uric Acid 6.5 mg/dL (2.5-7.5)
[2024-10-15 12:09] VITALS: BP 144/97; PULSE 84
== END 2024-10-20 09:59 | disposition other institution (70) ==
LOC: ANHOBOP 11:08
PROVIDERS: Visit Provider Obstetrics & Gynecology
DX: O10.019 Pre-existing essential hypertension complicating pregnancy, unspecified trimester (principal)
CPT/HCPCS: 36415; 59025; 76819; 80053; 84550; 85025

== ENCOUNTER 2024-10-16 06:22 | Inpatient (IN) | payer BC, SELFPAY ==
[2024-10-16] VITALS (297 sets, daily range): BP systolic 121–170; BP diastolic 52–140; PULSE 71–132; RESP 18; TEMP 36.4–37.1; O2SAT 96–100; BMI 35.9
--- OUTSIDE RECORDS SUMMARY | 2024-10-16 06:30 | XMS_ITS | Clinical Summary ---
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
[2024-10-16 07:06] LABS: Hematocrit 34.6 % (37.0-47.0); Hemoglobin 12.1 g/dL (12.0-15.0); Immature Granulocyte Percent A 1.0 % (0-0.5); Lymphocytes Absolute Auto 2.76 K/mm3 (0.9-3.2); Mean Corpuscular HGB Conc 35.0 g/dl (32-36); Mean Corpuscular Hemoglobin 32.4 pg (26-34); Mean Corpuscular Volume 92.5 fl (80-100); Nucleated Red Blood Cells Absolute Auto 0.000 K/mm3 (0.0-0.012); Nucleated Red Blood Cells Perc 0.0 % (0.0-0.2); Platelet Count Result 204 k/mm3 (150-375); Red Blood Count 3.74 M/mm3 (4.2-5.4); White Blood Count 16.6 K/mm3 (4.5-10.0)
--- NOTE | 2024-10-16 07:10 | PM.IMHP ---
H&P: HPI History of Present Illness Date/Time: 10/16/24 07:10 Chief Complaint: pre-eclampsia Narrative: Ebenezer is a 24yo @ 37.0wks who presents for IOL due to pre-eclamspia w/o severe features. She has been undergoing twice weekly ANT w/ weekly labs/BPP/gamal since diagnosis. Her BPs have always been in the moderate range but she has been completely asymptomatic with reassuring labs/ testing. Her is complicated by: - varicella nonimmune - pyelo in ; on daily keflex suppression - Gestational hypertension-- twice weekly NST/BPP --> pre-eclampsia w/o SF Review of Systems Constitutional: Constitutional: Denies chills, Denies fever(s) and Denies headache(s) Eyes: Eyes: Denies change in vision ENT: Denies headache(s) Cardiovascular: Cardiovascular: Denies chest pain and Denies dyspnea Respiratory: Respiratory: Denies dyspnea Genitourinary: Genitourinary: Denies abnormal vaginal bleeding and Denies vaginal discharge Neurologic: Denies headache(s) Psychiatric: Psychiatric: Denies anxiety and Denies depression [facility] Past Medical History Medical History Suppression of menses Surgical History Surgical History No pertinent past surgical history Family History Family History Mother Diabetes mellitus Grandparent Heart disease Social History Social History Smoking status: Never smoker Alcohol intake: never Alcohol use details: social Substance use: never Substance use type: does not use Do You Feel Safe in your Home?: Yes Lack of Transportation: No Lack of Food: Never True Current Housing: I Have Housing Concerned About Future Housing: No Difficulty Paying Gas/Electric Bills: No Difficulty Paying for Meds: No Currently Unemployed: No Education: Associate Degree Difficulty w/ Childcare or Family Care: No Living arrangements: with family Occupation/Education: occupation Additional occupation/education comments: [employer] Gender identity (if verbalized by the patient): Female Sexual Orientation (if Verbalized by the Patient): Straight or Heterosexual Spiritual care concerns: No Meds Home Medications and Allergies Home Medications ?Medication ?Instructions ?Recorded ?Confirmed ?Type vits no.126-ferrous fum 1 tablet PO .qd 30 days #30 tabs 05/07/24 10/16/24 Rx 28 mg iron-folic acid 800 mcg tablet (Classic ) cephalexin 250 mg capsule 250 mg PO QHS #90 caps 07/10/24 10/16/24 Rx Allergies Allergy/AdvReac Type Severity Reaction Status Date / Time No Known Allergies Allergy Verified 10/15/24 10:31 Vital Signs Vital Signs - 24 hr 10/16/24 07:01 Pulse Rate 106 H Blood Pressure 148/110 H Exam Const: General: cooperative, healthy appearing, comfortable and no acute distress Orientation/consciousness: patient oriented x3 Resp: Effort & Inspection: normal respiratory effort Cardio: Rate: regular rate GI: GI Palp: No abdominal tenderness : Other: FHT's: 150's/ mod alex/ + accels/ no decels - cat 1 TOCO: ctxs q3min Cervix: FT/50/-3 Membranes: intact Presentation: cephalic Skin: General skin exam: normal color Neuro: General: patient oriented x3 Extrem: General: normal to inspection Psych: Appearance: grossly normal Affect: normal affect Attitude: cooperative Assessment and Plan Assessment and plan (1) Pre-eclampsia: Qualifiers: Trimester: third trimester Qualified Code(s): O14.93 - Unspecified pre-eclampsia, third trimester Code(s): O14.90 - Unspecified pre-eclampsia, unspecified trimester Status: Acute Plan - Admitted for induction of labor; risks and benefits discussed - Cytotec 50mcg buccal will then re-evaluate after 4 hours - Continuous monitoring - BPs in moderate range; anti-hypertensives per protocol - GBS neg - Anesthesia consult PRN pain
--- NOTE | 2024-10-16 07:13 | LDADM ---
This patient, Ebenezer Espinal, was admitted to Labor/Delivery/Recovery 104 on 10/16/24 at 06:22. Plans for labor, pain management and were discussed with patient. Patient/family oriented to hospital policies and general routines including ID bracelet, bed and alarms, visiting hours, pain management, procedures, bathroom and other care routines, personal items, smoking policy, room service/diet and guest tray routines, infant security routines, and visiting hours. Patient/Family are encouraged to report perceived risks to care and to ask questions if they do not understand what they are told or what they should do. See OBIX for further documentation.
[2024-10-16 07:18] LABS: Alanine Aminotransferase 19 U/L (6-35); Albumin Level 3.5 g/dL (3.5-5.1); Alkaline Phosphatase 129 U/L (38-126); Anion Gap 8 mmol/L (4-12); Aspartate Amino Transferase 24 U/L (14-36); Bilirubin,Total 0.3 mg/dL (0.2-1.3); Blood Urea Nitrogen 16 mg/dL (7-17); Calcium 9.5 mg/dL (8.4-10.2); Carbon Dioxide 18 mmol/L (22-30); Chloride 108 mmol/L (98-107); Estimated Glomerular Filt Rate > 60; Glucose 136 mg/dL (65-110); Potassium 3.7 mmol/L (3.4-5.0); Sodium 134 mmol/L (137-145); Total Protein 6.6 g/dL (6.3-8.2); Uric Acid 6.3 mg/dL (2.5-7.5)
[2024-10-16 09:47] LABS: Syphilis IgG/IgM Antibody Non-Reactive (Nonreactive)
--- NOTE | 2024-10-16 12:49 | PM.OBPNLAB ---
Pain Control Date/time seen: 10/16/24 12:49 Pain control: tolerating well Comments: wanting epidural now though Pelvic Exam Dilation (cm): 1 (.5) Effacement (%): 50 station: -3 Amniotic membrane status: Ruptured (1240) Comments: s/p cytotec 50mcg buccal x1; rolanda too frequently for second dose; cervix still unfavorable so cook balloon placed with 60/60cc and then SROM was noted; cook balloon was then removed and srom was confirmed Contractions Monitor mode: External Status status: Category l Assessment and Plan Assessment: induction ongoing Comments: - will begin high dose pitocin augmentation
[2024-10-16] MEDS: fentaNYL CITRATE INJ (*CRX) 100 MCG/2 ML VIAL 50 MCG IV PUSH (12:53)
[2024-10-16] MEDS: LACTATED RINGERS 1,000 ML 999 ML IV CONT (13:17)
[2024-10-16] MEDS: OXYTOCIN 30 UNITS/NS 500 ML 30 UNITS/500 ML BAG IV CONT (13:19)
--- NOTE | 2024-10-16 13:36 | WPDANESEPP ---
Anes - Eval Pre Procedure Procedure: Labor epidural Date/Time: 10/16/24 13:36 Surgeon: René Preop Diagnosis: Pain during labor Pre Op Diagnosis: IOL Patient Data Age: 24 Gender: F Height: 1.63 m Weight: 95 kg Last Vital Signs Pulse 96 10/16/24 13:01 BP 149/105 H 10/16/24 13:01 Pulse Ox 98 10/16/24 13:32 O2 Del Method Room Air 10/16/24 07:11 Allergies Allergy/AdvReac Type Severity Reaction Status Date / Time No Known Allergies Allergy Verified 10/15/24 10:31 Home Medications ?Medication ?Instructions ?Recorded ?Confirmed ?Type vits no.126-ferrous fum 1 tablet PO .qd 30 days #30 tabs 05/07/24 10/16/24 Rx 28 mg iron-folic acid 800 mcg tablet (Classic ) cephalexin 250 mg capsule 250 mg PO QHS #90 caps 07/10/24 10/16/24 Rx Laboratory Tests 10/16/24 10/16/24 06:56 06:56 WBC 16.6 H K/mm3 (4.5-10.0) RBC 3.74 L M/mm3 (4.2-5.4) Hgb 12.1 g/dL (12.0-15.0) Hct 34.6 L % (37.0-47.0) MCV 92.5 fl (80-100) MCH 32.4 pg (26-34) MCHC 35.0 g/dl (32-36) RDW 13.1 % (11.5-14.5) Plt Count 204 k/mm3 (150-375) MPV 11.7 H fl (7.4-10.4) Immature Gran % (Auto) 1.0 H % (0-0.5) Neut % (Auto) 74.5 H % (45.5-73.1) Lymph % (Auto) 16.6 L % (18.3-44.2) [place] % (Auto) 6.5 % (2.6-8.5) Eos % (Auto) 1.0 % (0-4.4) Baso % (Auto) 0.4 % (0.2-1.2) Lymph # (Auto) 2.76 K/mm3 (0.9-3.2) [place] # (Auto) 1.1 H K/mm3 (0.1-0.6) Eos # (Auto) 0.2 K/mm3 (0-0.3) Baso # (Auto) 0.1 K/mm3 (0.0-0.1) Abs Immat Gran (auto) 0.16 H K/mm3 (0.00-0.031) Absolute Neuts (auto) 12.4 H K/mm3 (1.3-6.7) Absolute Nucleated RBC 0.000 K/mm3 (0.0-0.012) Nucleated RBC % 0.0 % (0.0-0.2) Sodium 134 L mmol/L (137-145) Potassium 3.7 mmol/L (3.4-5.0) Chloride 108 H mmol/L (98-107) Carbon Dioxide 18 L mmol/L (22-30) Anion Gap 8 mmol/L (4-12) BUN 16 mg/dL (7-17) Creatinine 0.60 L mg/dL (0.7-1.0) Estim Creat Clear Calc Not Reportable Estimated GFR > 60 (59 - ) Glucose 136 H mg/dL (65-110) Uric Acid Cancelled 6.3 mg/dL (2.5-7.5) Calcium 9.5 mg/dL (8.4-10.2) Total Bilirubin 0.3 mg/dL (0.2-1.3) AST 24 U/L (14-36) ALT 19 U/L (6-35) Alkaline Phosphatase 129 H U/L (38-126) Total Protein 6.6 g/dL (6.3-8.2) Albumin 3.5 g/dL (3.5-5.1) Syphilis IgG/IgM Ab Non-reactive (Nonreactive) Blood Type B Positive Antibody Screen Negative Patient hx anesthesia problems: none Family hx anesthesia problems: none Results Review: All pre-operative results and documents have been reviewed as part of the pre-operative evaluation. [facility] Past Medical History Medical History Suppression of menses Surgical History Surgical History No pertinent past surgical history Family History Family History Mother Diabetes mellitus Grandparent Heart disease Social History Social History Smoking status: Never smoker Alcohol intake: never Alcohol use details: social Substance use: never Substance use type: does not use Do You Feel Safe in your Home?: Yes Lack of Transportation: No Lack of Food: Never True Current Housing: I Have Housing Concerned About Future Housing: No Difficulty Paying Gas/Electric Bills: No Difficulty Paying for Meds: No Currently Unemployed: No Education: Associate Degree Difficulty w/ Childcare or Family Care: No Living arrangements: with family Occupation/Education: occupation Additional occupation/education comments: [employer] Gender identity (if verbalized by the patient): Female Sexual Orientation (if Verbalized by the Patient): Straight or Heterosexual Spiritual care concerns: No Exam Day of Procedure 10/16/24 13:36 Patient weight: overweight Heart: regular rate and rhythm Lungs: clear to auscultation Airway: Mallampati scale class II Neurological: alert and oriented
[2024-10-16] MEDS: LACTATED RINGERS 1,000 ML 125 ML IV CONT (16:50)
--- NOTE | 2024-10-16 20:55 | PM.OBPNLAB ---
Pain Control Date/time seen: 10/16/24 20:55 Pain control: epidural Pelvic Exam Dilation (cm): 4 (.5) Effacement (%): 90 station: -2 Amniotic membrane status: Ruptured (1240) Contractions Monitor mode: Internal Contraction frequency: 2 Contraction pattern: Regular Contraction intensity: Moderate Status status: Category l Assessment and Plan Pitocin rate (mU/min): 7 Plan: continuous present management Comments: - good cervical change since last exam; cervix very thin - will have anesthesia evaluate her epidural; having more pain on the right side - was noted to have a severe range BP, asymptomatic, but if repeat in 15min is still severe will need labetalol 20mg then magnesium sulfate for seizure ppx
[2024-10-17] VITALS (111 sets, daily range): BP systolic 112–213; BP diastolic 74–188; PULSE 67–276; RESP 16–18; TEMP 36.5–37.6; O2SAT 91–100
[2024-10-17] MEDS: ONDANSETRON INJ 4 MG/2 ML VIAL IV PUSH (01:50)
[2024-10-17] MEDS: MAGNESIUM SULF 4 GM/WATER100ML 4 GM/100 ML BAG IVPB (02:48)
[2024-10-17] MEDS: MAGNESIUM SULF 20GM/WATER500ML 500 ML 50 MG IV CONT ×2 (03:18→13:54)
[2024-10-17] MEDS: fentaNYL CITRATE INJ (*CRX) 100 MCG/2 ML VIAL 50 MCG IV PUSH (04:11)
[2024-10-17] MEDS: OXYTOCIN 30 UNITS/NS 500 ML 30 UNITS/500 ML BAG 125 UNITS IV CONT (04:16)
[2024-10-17] MEDS: LIDOCAINE 1% LOCAL INJ 20 ML VIAL (04:20)
--- NOTE | 2024-10-17 04:27 | P.PCNOB_ITS ---
OB - Vaginal Delivery Note Procedure Delivery date: 10/17/24 Events: Preeclampsia w severe features Induction method: Per Misoprostol Protocol Delivery augmentation: Rupture of Membranes and Pitocin Delivery monitor: External FHT and Internal Uterine Route of delivery: Episiotomy description: None Laceration Description: Perineal - 2nd Degree and Labial (right) Delivery repair: vicryl Specimen: Yes (placenta) Quantitative Blood Loss (ml): 350 Anesthesia type: Epidural Disposition: Floor Complications: No immediate complications [place] Baby Date of : 10/17/24 Time of : 04:02 Gestational Age by Date: 37 (1) gender: Male Weight (pounds): 8 Weight (ounces): 10 presentation: vertex position: Right Occiput Anterior Placenta delivery description: Expressed Cord Vessel Description: 3 Vessels, Nuchal Cord and Loose score one minute: 7 score five minutes: 9 Narrative: Ebenezer began to develop severe range blood pressures overnight and required a male wall 20, 40 mg and was then started on magnesium sulfate for seizure prophylaxis. She progressed to complete dilation and pushed for approximately 1 hour. She delivered the head over intact perineum. Nuchal cord was noted but loose and delivered through. She easily delivered the infant's shoulders and body without complication. The was immediately placed skin to skin but was found to be limp with minimal tone and no cry therefore the umbilical cord was then immediately doubly clamped and cut and he was handed off the awaiting pediatric team. After short time cry was then heard. A segment of cord was collected for cord gases. The remaining cord blood was collected for typing. With Pitocin running and gentle downward traction on the cord, the placenta delivered without complication. Bimanual massage was performed and atony with slight increase in bleeding was noted. Cytotec 800 mcg was placed rectally by the nurse. With massage the uterus was then found to be firm with minimal bleeding. She was examined and a right periurethral that extended into her right labia was noted as well as a second-degree perineal laceration was noted. Due to her epidural not fully working I did anesthetize her with 1% lido shama. The right periurethral extended to her labia was repaired using 3-0 Vicryl in the normal fashion and good reapproximation with minimal bleeding was then noted. The second-degree perineal laceration was repaired in the normal fashion using 2-0 Vicryl and good hemostasis was noted. Bimanual massage was once again performed and a small clot was removed from her uterus but it was then found to be firm with minimal bleeding. Sponge, lap, instrument, and needle counts were correct at the end of the procedure mom and baby were left bonding in the birthing suite in stable condition. She will be started on oral antihypertensives as well as continued on the magnesium sulfate for 24 hours.
[2024-10-17] MEDS: IBUPROFEN 600 MG TABLET PO ×2 (07:23→16:16)
[2024-10-17] MEDS: WITCH HAZEL 40 PADS 1 PAD TOPICAL (07:24)
[2024-10-17] MEDS: BENZOCAINE 20% AER SPR (*SP) 56 GM CAN 1 SPRAY TOPICAL (07:24)
--- NOTE | 2024-10-17 07:41 | PC.NURSE ---
Spoke with Dr Merritt regarding patient's BP's. Dr. Merritt would like scheduled 200mg labetalol po to be given at 0800 and 2000. Patient it to use bedside commode during period. Mag for 24 hours. BP's q4 hours. Will update DEANNE Gracia.
[2024-10-17] MEDS: LABETALOL HCL 100 MG TABLET 200 MG PO (07:45)
--- NOTE | 2024-10-17 08:40 | PC.NURSE ---
Patient needing assistance with feeding. Baby was wrapped and being held so we moved him to the bassinet and unwrapped him. He stirred a little and when put next to the breast he gave some good effort to latch. With assistance, he was able to get a maintainable latch. He was sleepy and suckled intermittently with stimulation. Mom is encouraged to let him feed as long as he wants. Mom needs maximum assistance with latch and positioning. We will need to work to get a deep latch. She is on Mag Sulfate at this time. Baby is only 36 weeks gestation. Primary RN updated.
--- NOTE | 2024-10-17 10:54 | PC.NURSE ---
Took over patient care for DEANNE Gracia at [id number]
--- NOTE | 2024-10-17 10:55 | OBPPTRN ---
Patient and baby transferred to post room #291 via (wheelchair). Support person present. Oriented to unit, room, information board, rooming in, admission packet and security measures. Patient verbalizes understanding.
--- NOTE | 2024-10-17 11:59 | PC.NURSE ---
Patient care resumed by DEANNE Gracia at this time.
[2024-10-17] MEDS: DOCUSATE SODIUM 100 MG CAPSULE PO (12:00)
[2024-10-17] MEDS: ACETAMINOPHEN 325 MG TABLET 650 MG PO (12:00)
[2024-10-17] MEDS: MULTIVIT/MIN/PREN/FOL AC/IRON TABLET 1 TAB PO (12:01)
[2024-10-17] MEDS: LACTATED RINGERS 1,000 ML 75 ML IV CONT ×2 (13:35→13:55)
--- NOTE | 2024-10-17 14:55 | PC.NURSE ---
Attempted to assist mom with latching infant. She had him at the breast and says that he had 'latched for a few minutes' but was very sleepy. We tried to wake him and obtain a latch. Baby is a tongue sucker and does not open his mouth wide enough to take in the whole nipple. Educated mom that the whole nipple and part of the areola need to be in baby's mouth for proper milk transfer. Baby made minimal effort to latch. Mom was offered to try football position but she wanted to sit up more and continue trying in cradle hold. She was shown cross cradle hold and instructed to make a 'bite' for baby by compressing the breast. She tends to switch her hands back to a cradle hold often. Baby is 37 weeks and mom may need to initiate pumping to support her milk supply. She is encouraged to keep baby skin to skin on her chest for now and to try again in 30 minutes or anytime she sees feeding cues. Family present in room at this time. RN updated.
--- NOTE | 2024-10-17 16:40 | PC.NURSE ---
Patient has baby in football hold. He had a low blood glucose and needed gel and supplementation. We tried for a few minutes at breast and baby did not give any effort. Mom is instructed to move on to giving formula because of the low blood sugar and to start the next feeding at the breast again. Patient instructed to call if baby does not take 15ml in 15-20 minutes. RN updated.
[2024-10-17] MEDS: LABETALOL HCL 100 MG TABLET 400 MG PO (20:32)
[2024-10-18] VITALS (7 sets, daily range): BP systolic 126–140; BP diastolic 75–85; PULSE 73–98; RESP 15–18; TEMP 36.5–37; O2SAT 98–100
[2024-10-18] MEDS: MAGNESIUM SULF 20GM/WATER500ML 500 ML 50 MG IV CONT (00:02)
[2024-10-18] MEDS: ACETAMINOPHEN 325 MG TABLET 650 MG PO ×3 (03:39→17:39)
[2024-10-18 04:57] LABS: Hematocrit 27.7 % (37.0-47.0); Hemoglobin 9.2 g/dL (12.0-15.0); Mean Corpuscular HGB Conc 33.2 g/dl (32-36); Mean Corpuscular Hemoglobin 31.9 pg (26-34); Mean Corpuscular Volume 96.2 fl (80-100); Platelet Count Result 163 k/mm3 (150-375); Red Blood Count 2.88 M/mm3 (4.2-5.4); White Blood Count 17.9 K/mm3 (4.5-10.0)
[2024-10-18 05:07] LABS: Alanine Aminotransferase 16 U/L (6-35); Albumin Level 2.8 g/dL (3.5-5.1); Alkaline Phosphatase 112 U/L (38-126); Anion Gap 5 mmol/L (4-12); Aspartate Amino Transferase 29 U/L (14-36); Bilirubin,Total 0.2 mg/dL (0.2-1.3); Blood Urea Nitrogen 11 mg/dL (7-17); Calcium 7.6 mg/dL (8.4-10.2); Carbon Dioxide 23 mmol/L (22-30); Chloride 107 mmol/L (98-107); Estimated CRCL calculation 126 ml/min; Estimated Glomerular Filt Rate > 60; Glucose 127 mg/dL (65-110); Potassium 3.5 mmol/L (3.4-5.0); Sodium 135 mmol/L (137-145); Total Protein 5.5 g/dL (6.3-8.2)
--- NOTE | 2024-10-18 07:16 | P.PNOB_ITS ---
OB - PN: Subj Subjective Date/time seen: 10/18/24 07:16 Narrative: PPD#1 Ebenezer reports doing well today. 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 Her pain is controlled. She is tolerating regular diet, voiding, passing gas, and ambulating without issues. She is breast feeding. OB - PN: Obj Data Labs 10/18/24 03:28 10/18/24 03:28 Labs: Laboratory Results - last 24 hr 10/18/24 03:28 WBC 17.9 H RBC 2.88 L Hgb 9.2 L Hct 27.7 L MCV 96.2 MCH 31.9 MCHC 33.2 RDW 13.8 Plt Count 163 MPV 12.2 H Sodium 135 L Potassium 3.5 Chloride 107 Carbon Dioxide 23 Anion Gap 5 BUN 11 D Creatinine 0.65 L Estim Creat Clear Calc 126 Estimated GFR > 60 Glucose 127 H Calcium 7.6 L Total Bilirubin 0.2 AST 29 ALT 16 Alkaline Phosphatase 112 Total Protein 5.5 L Albumin 2.8 L OB - PN A/P Assessment and Plan (1) Normal vaginal delivery of first : Code(s): O80 - Encounter for full-term uncomplicated delivery Status: Acute (2) Pre-eclampsia: Qualifiers: Trimester: third trimester Qualified Code(s): O14.93 - Unspecified pre- eclampsia, third trimester Code(s): O14.90 - Unspecified pre-eclampsia, unspecified trimester Status: Acute Plan day: 1 Plan: routine care Comments: - PO pain meds - Regular diet - Ambulation and hydration encouraged - Continue putting baby to breast q2-3hr - s/p magnesium 24 hours PP, labetalol titrated to 400mg q12h, BPs in normal/moderate range but will continue to monitor closely off magnesium today, diuresing nicely, pt asymptomatic Time Spent With Patient Time: Total time spent is greater than 50% in coordination of care (as documented) at patient's floor/unit and/or counseling patient: Review of Systems 2 Constitutional: Constitutional: Denies chills, Denies fever(s) and Denies headache(s) Eyes: Eyes: Denies change in vision ENT: Denies dizziness and Denies headache(s) Cardiovascular: Cardiovascular: Denies chest pain, Denies palpitations and Denies dyspnea Respiratory: Respiratory: Denies cough and Denies dyspnea Gastrointestinal: Gastrointestinal: Denies nausea and Denies vomiting Neurologic: Denies dizziness and Denies headache(s) Endocrine: Endocrine: Denies palpitations Exam 2 Const: General: cooperative, healthy appearing, comfortable and no acute distress Nutritional Appearance: obese Orientation/consciousness: patient oriented x3 Resp: Effort & Inspection: normal respiratory effort Auscultation: clear to auscultation bilaterally Cardio: Rate: regular rate GI: Inspection: non-distended GI Palp: No abdominal tenderness and Yes Soft to palpation Auscultation: normal bowel sounds : Other: fundus firm Skin: General skin exam: normal color Neuro: General: patient oriented x3 Extrem: General: normal to inspection Psych: Appearance: grossly normal Affect: normal affect Attitude: c ooperative
--- NOTE | 2024-10-18 07:20 | P.DS_ITS ---
DS: Admitting Diagnosis Discharge Date 10/19/24 Admitting Diagnosis induction of labor pre-eclampsia w/o severe features DS: Discharge Diagnosis Discharge Diagnosis (1) Normal vaginal delivery of first : Code(s): O80 - Encounter for full-term uncomplicated delivery Status: Acute (2) Pre-eclampsia: Qualifiers: Trimester: third trimester Qualified Code(s): O14.93 - Unspecified pre- eclampsia, third trimester Code(s): O14.90 - Unspecified pre-eclampsia, unspecified trimester Status: Acute OB - DS: Summary OB Procedures : NST, PIH Mgmt and Ultrasound OB Procedures Intrapartum: Spontaneous Vag Delivery OB Procedures: : None Peripartum Data Delivery Method: Natural Vaginal Laceration Description: Perineal - 2nd Degree and Labial (right) Episiotomy description: None complications: none [place] 1: Gender: Male Disposition of : home Status at Discharge Functional status at discharge: independent ambulation Overall status at discharge: patient is back to baseline Time Spent with Patient Time attestation: Total time spent providing and/or coordinating discharge services: Exam Const: General: cooperative, comfortable and no acute distress Orientation/consciousness: patient oriented x3 Resp: Effort & Inspection: normal respiratory effort Auscultation: clear to auscultation bilaterally Cardio: Rate: regular rate GI: Inspection: non-distended GI Palp: No abdominal tenderness and Yes Soft to palpation Auscultation: normal bowel sounds : Other: fundus firm Skin: General skin exam: normal color Neuro: General: patient oriented x3 Extrem: General: normal to inspection Psych: Appearance: grossly normal Affect: normal affect Attitude: cooperative DS: Data Data Completed and Pending Labs on day of discharge: Labs from last 24 hours 10/18/24 03:28 WBC 17.9 H RBC 2.88 L Hgb 9.2 L Hct 27.7 L MCV 96.2 MCH 31.9 MCHC 33.2 RDW 13.8 Plt Count 163 MPV 12.2 H Sodium 135 L Potassium 3.5 Chloride 107 Carbon Dioxide 23 Anion Gap 5 BUN 11 D Creatinine 0.65 L Estim Creat Clear Calc 126 Estimated GFR > 60 Glucose 127 H Calcium 7.6 L Total Bilirubin 0.2 AST 29 ALT 16 Alkaline Phosphatase 112 Total Protein 5.5 L Albumin 2.8 L Discharge Plan Discharge Attending physician on discharge: Shannon Merritt Consulting providers: Remi Espinosa Discharging Clinician: Remi Espinosa Anticipated Discharge Date/Time: 10/19/24 11:00 Patient Disposition: Home Activity: may shower and pelvic rest Diet: regular Patient Instructions: Preeclampsia During (DC), Vaginal Delivery (DC) Patient Language: Serbian Stand Alone Forms: General Discharge Information Follow-up/Referrals: Shannon Merritt MD [Physician] - 4 Weeks (and 1 week BP check) Discharge Medications: New acetaminophen 325 mg Tablet 650 mg PO Q6H PRN (Reason: Mild Pain (1-3) Or Headache) Qty: 60 0RF docusate sodium 100 mg Capsule 100 mg PO BID PRN (Reason: Constipation) Qty: 90 0RF ibuprofen 600 mg Tablet 600 mg PO Q6H PRN (Reason: Cramping) Qty: 40 0RF labetalol 400 mg tablet 400 mg PO Q12H 60 Days Qty: 120 0RF Continued Classic 28 mg iron- 800 mcg tablet 1 tablet PO .qd 30 Days Qty: 30 6RF Discontinued cephalexin 250 mg capsule 250 mg PO QHS Qty: 90 1RF Rx Instructions: take 1 cap at bedtime daily until delivery Date of admission: 10/16/24 06:22 Primary Care Provider: PHYSICIAN NOT ON STAFF,NONSTAFF Admitting Provider: Shannon Merritt Attending physician on admission: Shannon Merritt Condition: Stable
[2024-10-18] MEDS: IBUPROFEN 600 MG TABLET PO ×2 (08:48→17:39)
[2024-10-18] MEDS: MULTIVIT/MIN/PREN/FOL AC/IRON TABLET 1 TAB PO (08:50)
[2024-10-18] MEDS: LABETALOL HCL 100 MG TABLET 400 MG PO ×2 (08:51→20:38)
--- NOTE | 2024-10-18 12:35 | PC.NURSE ---
1235: is [greater than 24 hours old & high risk for ineffective ]. He has not fed [effectively at breast] today. Initiated a feeding plan for infant with formula supplementation. Mother is instructed to pump (with a hospital pump or her pump from home) after every or attempt. Mother should only attempt for 10-15 minutes at breast before moving on to supplementation. Support person can feed baby 15ml of pumped milk or formula while mother is pumping. Instructed parents on keeping breastmilk at the bedside until the next feeding or for up to 4 hours. Hospital breast pump provided with instructions given on cleaning, care, usage, that there should be no pain, pumping schedule for milk production, collection, and storage of human milk. Patient was assessed for correct placement, flange size (21mm), to pump for adequate milk production every 3 hours (8 times in 24 hours). Reported to Primary RN.? 1440: Patient called for a review of the feeding plan. She was able to pump about 8ml of colostrum. We mixed it with some formula and mom was going to proceed with attempting at breast and pumping again. We talked about how overwhelming triple feeding can be and that if she needs to skip a pump session that is okay. Assured patient that this feeding plan is short term. Patient verbalized understanding of the feeding plan and will call out for any other questions or concerns. Primary RN updated.
--- NOTE | 2024-10-18 14:18 | WPDANLDPN2 ---
Anes-Prog Note L&D Date/Time: 10/18/24 14:18 Comfortable throughout: labor and delivery Neuraxial method: epidural Epidural/Spinal procedure site: clean & non-tender Neuro status: Neuro function grossly intact. Vital Signs: Last Vital Signs Temp 36.8 C 10/18/24 12:14 Pulse 80 10/18/24 12:14 Resp 16 10/18/24 12:14 BP 126/75 10/18/24 12:14 Pulse Ox 98 10/18/24 12:14 O2 Del Method Room Air 10/18/24 07:40 Pain score (VAS): 0 I/O: Intake & Output 10/17/24 10/18/24 10/18/24 23:59 07:59 15:59 Intake Total 1950 600 Output Total 700 1800 Balance 1250 -1200 Patient feedback: Patient satisfied with anesthetic care.
[2024-10-18] MEDS: DOCUSATE SODIUM 100 MG CAPSULE PO (17:39)
[2024-10-19 00:45] VITALS: BP 138/85
[2024-10-19 04:50] VITALS: BP 131/79; PULSE 82
--- NOTE | 2024-10-19 07:35 | P.PNOB_ITS ---
OB - PN: Subj Subjective Date/time seen: 10/19/24 07:35 Patient comments: pain well controlled, tolerating diet and other (Decreasing lochia.) baby status: doing well and nursing well OB - PN: Obj Data Labs 10/18/24 03:28 10/18/24 03:28 OB - PN A/P Plan day: 2 Plan: discharge home and other Comments: Patient doing well. Follow up 4-6 weeks. Discharge instructions provided. Time Spent With Patient Time: Total time spent is greater than 50% in coordination of care (as documented) at patient's floor/unit and/or counseling patient: Time with patient: less than 15 minutes Exam 2 Psych: Affect: normal affect Other: Abd: fundus firm below umbilicus, nontender Ext: nontender
[2024-10-19 08:50] VITALS: BP 140/93; PULSE 76; RESP 18; TEMP 36.6; O2SAT 99
[2024-10-19 08:56] VITALS: PULSE 80
[2024-10-19] MEDS: LABETALOL HCL 100 MG TABLET 400 MG PO (08:56)
[2024-10-19] MEDS: MULTIVIT/MIN/PREN/FOL AC/IRON TABLET 1 TAB PO (08:57)
[2024-10-19] MEDS: ACETAMINOPHEN 325 MG TABLET 650 MG PO (08:57)
[2024-10-19] MEDS: WITCH HAZEL 40 PADS 1 PAD TOPICAL (08:59)
[2024-10-19] MEDS: DOCUSATE SODIUM 100 MG CAPSULE PO (08:59)
[2024-10-20 08:31] VITALS: BP 146/95; PULSE 77; RESP 16; TEMP 36.4; O2SAT 100
== END 2024-10-19 13:56 | disposition home or self-care (01) | DRG 807 ==
LOC: ANHOB2 10-19 07:37 → ANHLDR 10-23 06:35
PROVIDERS: Admitting Provider Obstetrics & Gynecology; Visit Provider Obstetrics & Gynecology
DX: O14.04 Mild to moderate pre-eclampsia, complicating childbirth (principal); Z37.0 Single live birth; Z3A.37 37 weeks gestation of pregnancy; O70.1 Second degree perineal laceration during delivery; O72.1 Other immediate postpartum hemorrhage; O69.81X0 Labor and delivery complicated by cord around neck, without compression, not applicable or unspecified; Z79.2 Long term (current) use of antibiotics
CPT/HCPCS: 36415; 59025; 80053; 84550; 85025; 85027; 86593; 86850; 86900; 86901; A9270; J2003; J2405; J2590; J2795; J3010; J3475; J7120